=== PATIENT | female | born 1940 | race Caucasian/White ===

== ENCOUNTER 2020-12-21 15:08 | Outpatient (RCR) | payer MEDICARE, SELFPAY ==
[2017-08-15 14:16] VITALS: BMI 31.8
== END 2020-12-21 23:59 ==
LOC: IMMUN 15:08
PROVIDERS: PCP Family Medicine; Visit Provider Family Medicine
DX: Z23 Encounter for immunization (principal)
CPT/HCPCS: 0011A; 0012A; 91301

== ENCOUNTER → 2025-06-13 | Outpatient (CLI) | payer MEDICARE, SELFPAY ==
--- NOTE | 2025-06-13 15:25 | RAD_ITS ---
PROCEDURE: CERV SPINE 2 OR 3 VIEWS 06/13/2025 REASON FOR EXAM: RADICULOPATHY, CERVICAL REGION TECHNIQUE: CERV SPINE 2 OR 3 VIEWS COMPARISON: None. FINDINGS: No evidence of acute fracture or dislocation. Moderate degenerative changes of the visualized spine. Grade 1 anterolisthesis of C7 on T1. RAD/Cerv Spine 2 or 3 Views IMPRESSION: Spondylosis. Spondylolisthesis. Reading Location: [place] [id number]
--- OUTSIDE RECORDS SUMMARY | 2025-06-13 22:59 | XMS RPT_ITS | CCD ---
Author Organization [facility] Care Team Providers Care Banana Loader Name Role Phone CHANI GARRETT, ERIK Posada Primary Care Physician LUIS SHETTY DO Primary Care Physician Unavailable Primary Care Provider Unavailabl e SENA DO, LUIS E Primary Care Unavailable JANI GARRETT, NEMESIO Mabry Attending Unavail able ELAINE ANDERSON, DR MAYRA Posada Attending Unavailable SHETTY DO, LUIS E Primary Care Unavailable SHETTY DO, LUIS E Attending Unavailable SHETTY DO, LUIS E Primary Care Unavailable SHETTY DO, LUIS E Attending Unavailable SHETTY DO, LUIS E Primary Care Unavailable SHETTY DO, LUIS E Attending Unavailable SHETTY DO, LUIS E Primary Care Unavailable SHETTY DO, LUIS E Attending Unavailable SHETTY DO, LUIS E Primary Care Unavailable SHETTY DO, LUIS E Attending Unavailable SHETTY DO, LUIS E Primary Care Unavailable SHETTY, LUIS Primary Care Unavailable SHETTY, LUIS Primary Care Unavailable SHETTY, LUIS Primary Care Unavailable Shetty DO, Luis Primary Care Provider [phone] EDMUNDO HICKMAN Attending Unavailable SHETTY, LUIS E Primary Care Unavailable SHETTY DO, LUIS E Primary Care Unavailable SHETTY DO, LUIS E Attending Unavailable SHETTY DO, LUIS E Attending Unavailable SHETTY DO, LUIS E Primary Care Unavailable SHETTY DO, LUIS E Attending Unavailable SHETTY DO, LUIS E Primary Care Unavailable SHETTY DO, LUIS E Primary Care Unavailable SHETTY DO, LUIS E Attending Unavailable SHETTY DO, LUIS E Attending Unavailable SHETTY DO, LUIS E Primary Care Unavailable SHETTY DO, LUIS E Primary Care Unavailable SHETTY DO, LUIS E Attending Unavailable Allergies Allergy Classification Reported Allergen(s) Allergy Type Date of Onset Reaction(s) Facility (12 sources) Acetaminophen / HYDROcodone; Translations: [acetaminophen-h ydrocodone] Drug Allergy [facility] (12 sources) Clindamycin; Translations: [clindamycin] Drug Allergy [facility] (12 sources) Penicillin; Translations: [penicillins] Drug Allergy [facility] (11 sources) Azithromycin; Translations: [azithromycin] Drug Allergy Constipation (disorder) [facility] (5 sources) Turmeric extract; Translations: [turmeric] Drug Allergy Lightheadedness (finding) [facility] (1 source) ALLERGIES NOT ON FILE; Translations: [ALLERGIES NOT ON FILE] Propensity to adverse reactions (disorder) [facility] Repository (1 source) denosumab; Translations: [denosumab] Drug Allergy Joint pain (finding) [facility] Medications Current Medications Medication Drug Class(es) Dates Sig (Normalized) Sig (Original) Cholecalciferol (11 sources) Vitamin D Start: 08-19-2022 take 1 capsule by mouth once daily Vitamin D (3) 45 units oral capsule qDay, 0 Refill(s) Start Date: 08/19/22 Status: Ordered Repeat number: 1 Start: 08-19-2022 Vitamin D (3) 45 units oral capsule qDay, 0 Refill(s) Start Date: 08/19/22 Status: Ordered clobetasol propionate 0.5 mg/ml medicated shampoo (3 sources) Corticosteroid Start: 07-10-2022 clobetasol 0.0 5% topical shampoo Apply 1 gladys, Topical, qDay, # 118 mL, 0 Refill(s), Pharmacy: [facility] #[id number], Shampoo, 167, cm, 07/10/22 11:22:00 EDT, Height, 77.6 Start Date: 07/10/22 Status: Ordered Docusate (7 sources) Start: 09-15-2023 take 1 mg by mouth twice daily Dulcolax Stool Softener mg =, Oral, BID, 0 Refill(s) Start Date: 09/15/23 Status: Ordered Repeat number: 1 Start: 09-15-2023 take 1 mg by mouth twice daily Dulcolax Stool Softener mg =, Oral, BID, 0 Refill(s) Start Date: 09/15/23 Status: Ordered doxycycline hyclate 100 mg oral capsule (1 source) Tetracycline-class Drug Start: 07-13-2024 End: 07-20-2024 doxycycline hyclate 100 mg oral capsule Dose : 100 mg = 1 cap(s), Oral, BID, X 7 day(s), # 14 cap(s), 0 Refill(s), 07/20/24 3:19:00 PM EDT, 73.2 Start Date: 07/13/24 Stop Date: 07/20/24 Status: Ordered glucosamine sulfate 500 mg oral capsule (8 sources) Start: 04-23-2022 glucosamine 50 0 mg oral capsule Dose : 500 mg = 1 cap(s), Oral, Daily, 0 Refill(s) Start Date: 04/23/22 Status: Ordered levothyroxine sodium 0.05 mg oral tablet (13 sources) l-Thyroxine Start: 01-25-2025 levothyroxine 50 mcg (0.05 mg) oral tablet See Instructions, TAKE 1 TAB BY MOUTH EVERYDAY, EXCEPT 2 ON FRIDAY, # 102 tab(s), 1 Refill(s), [facility]: [facility] [place], 155, cm, 01/25/25 14:30:00 EST, Height, kg, 01/25/25 14:30:00 EST, Dosing Weight Start Date: 01/25/25 Status: Ordered Quantity: 102.0 Unit: tab(s) Repeat number: 2 Start: 06-28-2024 levothyroxine 50 mcg (0.05 mg) oral tablet See Instructions, TAKE 1 TAB BY MOUTH EVERYDAY, EXCEPT 2 ON FRIDAY, # 102 tab(s), 0 Refill(s), Pharmacy: [facility] [place], 167, cm, 06/28/24 10:26:00 EDT, Height, kg, 06/28/24 10:20:00 EDT, Dosing Weight Start Date: 06/28/24 Status: Ordered Start: 06-11-2024 levothyroxine 50 mcg (0.05 mg) oral tablet See Instructions, TAKE 1 TAB BY MOUTH EVERYDAY, EXCEPT 2 ON FRIDAY, # 102 tab(s), 0 Refill(s), Pharmacy: [facility] [place], 167, cm, 03/29/24 13:53:00 EDT, Height, kg, 03/29/24 13:53:00 EDT, Dosing Weight Start Date: 06/11/24 Status: Ordered Start: 10-02-2023 levothyroxine 50 mcg (0.05 mg) oral tablet See Instructions, TAKE 1 TAB BY MOUTH EVERYDAY, EXCEPT 2 ON FRIDAY, # 102 tab(s), 1 Refill(s), Pharmacy: [facility] [place], 167, cm, 09/15/23 12:25:00 EDT, Height, kg, 09/15/23 12:25:00 EDT, Dosing Weight Start Date: 10/02/23 Status: Ordered Start: 04-21-2023 levothyroxine 50 mcg (0.05 mg) oral tablet See Instructions, TAKE 1 TAB BY MOUTH EVERYDAY, EXCEPT 2 ON FRIDAY, # 102 tab(s), 1 Refill(s), Pharmacy: [facility] [place], 167, cm, 02/18/23 10:59:00 EDT, Height, kg, 02/18/23 10:59:00 EDT, Dosing Weight Start Date: 04/21/23 Status: Ordered Start: 11-11-2022 levothyroxine 50 mcg (0.05 mg) oral tablet See Instructions, TAKE 1 TAB BY MOUTH EVERYDAY, EXCEPT 2 ON FRIDAY, # 102 tab(s), 1 Refill(s), [facility]acy: [facility] [place], 167, cm, 08/21/22 15:00:00 EDT, Height, kg, 08/21/22 15:00:00 EDT, Dosing Weight Start Date: 11/11/22 Status: Ordered Start: 08-21-2020 levothyroxine 50 mcg (0.05 mg) oral tablet See Instructions, TAKE 1 TAB BY MOUTH EVERYDAY, EXCEPT 2 ON FRIDAY, # 34 tab(s), 11 Refill(s), Pharmacy: [facility], 157.6, cm, 08/21/20 10:24:00 EDT, Height, kg, 08/21/20 10:24:00 EDT, Dosing Weight Start Date: 5/25/21 Status: Ordered magnesium oxide 250 mg oral tablet (2 sources) Start: 09-15-2023 Magnesium 250 mg tablet Dose : 250 mg = 1 tab(s), Oral, qDay, 0 Refill(s) Start Date: 09/15/23 Status: Ordered memantine hydrochloride 5 mg oral tablet (3 sources) U-ieyqop-J-aspart ate Receptor Antagonist Start: 01-25-2025 take 1 tablet by mouth twice daily memantine 5 mg oral tablet TAKE 1 TABLET BY MOUTH TWICE A DAY FOR 14 DAYS Start Date: 01/25/25 Status: Ordered Repeat number: 1 Multivitamin preparation (11 sources) Start: 04-23-2022 take 1 tablet by mouth once daily Multivitamin Dose = 1 tab(s), Oral, Daily, 0 Refill(s) Start Date: 04/23/22 Status: Ordered Repeat number: 1 Start: 04-23-2022 take 1 tablet by gene th once daily Multivitamin Dose = 1 tab(s), Oral, Daily, 0 Refill(s) Start Date: 04/23/22 Status: Ordered Probiotic (13 sources) Start: 08-19-2022 Probiotic 0 Re fill(s) Start Date: 08/19/22 Status: Ordered Start: 04-23-2022 Probiotic 0 Re fill(s) Start Date: 04/23/22 Status: Ordered Repeat number: 1 Start: 04-23-2022 Probiotic 0 Re fill(s) Start Date: 04/23/22 Status: Ordered Psyllium (1 source) Start: 03-29-2024 psyllium Oral, 0 Refill(s) Start Date: 03/29/24 Status: Ordered traZODone hydrochloride 50 mg oral tablet (2 sources) Serotonin Reuptake Inhibitor Start: 08-22-2023 traZODone 50 mg oral tablet Dose : 50 mg = 1 tab(s), Oral, qHS, # 30 tab(s), 0 Refill(s), Pharmacy: [facility] [place], Sleep difficulties, 167.3, cm, 08/22/23 13:32:00 EDT, Height, kg, 08/22/23 13:32:00 EDT, Dosing Weight Start Date: 08/22/23 Status: Ordered Vitamin B12 50 mcg oral tablet (11 sources) Start: 04-23-2022 Vitamin B12 50 mcg oral tablet Dose : 50 mcg = 1 tab(s), Oral, qDay, # 30 tab(s), 0 Refill(s) Start Date: 04/23/22 Status: Ordered Quantity: 30.0 Unit: tab(s) Repeat number: 1 Start: 04-23-2022 Vitamin B12 50 mcg oral tablet Dose : 50 mcg = 1 tab(s), Oral, qDay, # 30 tab(s), 0 Refill(s) Start Date: 04/23/22 Status: Ordered Vitamin C 1000 mg oral table t (11 sources) Start: 08-19-2022 Vitamin C 1000 mg oral tablet Dose : 1,000 mg = 1 tab(s), Oral, qDay, # 90 tab(s), 0 Refill(s) Start Date: 08/19/22 Status: Ordered Quantity: 90.0 Unit: tab(s) Repeat number: 1 Start: 08-19-2022 Vitamin C 1000 mg oral tablet Dose : 1,000 mg = 1 tab(s), Oral, qDay, # 90 tab(s), 0 Refill(s) Start Date: 08/19/22 Status: Ordered Completed/Discontinued Medications Medication Drug Class(es) Dates Sig (Normalized) Sig (Original) alendronic acid 70 mg oral tablet (2 sources) Bisphosphonate Start: 04-05-2025 take 6-8 [oz_av] by mouth once daily alendronate 70 mg oral tablet Dose : 70 mg = 1 tab(s), Oral, qWeek, with 6-8 oz plain water, at least 30 minutes before first food, beverage, or medication of the day. Upright for 2 hours after, # 4 tab(s), 1 Refill(s), Pharmacy: [facility] [place], Osteopenia, dexa 03/2024 with FRAX hip 2.9%, 155.5, cm, 04/05/25 10:03:00 EDT, Height, kg, 04/05/25 10:03:00 EDT, Dosing Weight Start Date: 04/05/25 Status: Ordered Quantity: 4.0 Unit: tab(s) Repeat number: 2 Indications: Other specified disorders of bone density and structure, unspecified site; 1 ml denosumab 60 mg/ml prefilled syringe (10 sources) RANK Ligand Inhibitor Start: 02-18-2025 inject 1 mL by subcutaneous injection in the evening Prolia 60 mg/mL subcutaneous solution Dose : 60 mg = 1 mL, Subcutaneous, q6mo, Signed 02/18/25 at 4:50 PM M81.0, # 1 mL, 1 Refill(s), Osteoporosis Start Date: 02/18/25 Status: Ordered Quantity: 1.0 Unit: mL Repeat number: 2 Indications: Age-related osteoporosis without current pathological fracture; Start: 09-08-2024 inject 1 mL by subcu taneous injection in the evening Prolia 60 mg/mL subcutaneous solution Dose : 60 mg = 1 mL, Subcutaneous, q6mo, M81.0 Signed 09/08/24 at 5:08 PM, # 1 mL, 1 Refill(s), Osteoporosis Start Date: 09/08/24 Status: Ordered Start: 02-24-2024 Prolia 60 mg/m L subcutaneous solution Dose : 60 mg = 1 mL, Subcutaneous, q6mo, # 1 mL, 1 Refill(s), Osteoporosis Start Date: 02/24/24 Status: Ordered Start: 08-29-2023 Prolia 60 mg/m L subcutaneous solution Dose : 60 mg = 1 mL, Subcutaneous, q6mo, # 1 mL, 1 Refill(s), Osteoporosis Start Date: 08/29/23 Status: Ordered Start: 08-19-2022 Prolia 60 mg/m L subcutaneous solution Dose : 60 mg = 1 mL, Subcutaneous, q6mo, # 1 mL, 1 Refill(s), Osteoporosis Start Date: 11/01/22 Status: Ordered Problems Problem Classification Problem Date Documented Da te Episodic/Chronic Chronic obstructive pulmonary disease and bronchiectasis (1 source) Bronchitis; Translations: [Bronchitis, not specified as acute or chronic] Onset: 07-13-2024 Episodic Complications of surgical procedures or medical care (3 sources) Complication of medical care 01-25-2025 Episodic Conditions associated with dizziness or vertigo (9 sources) Intermittent vertigo 09-15-2023 Episodic Delirium, dementia, and amnestic and other cognitive disorders (3 sources) Alzheimer's disease 01-25-2025 Chronic Diabetes mellitus without complication (8 sources) Prediabetes; Translations: [Prediabetes] 02-19-2023 Episodic Disorders of lipid metabolism (12 sources) Pure hyperglyceridemia; Translations: [Pure hyperglyceridemia] Onset: 04-08-2025 02-19-2023 Chronic Osteoporosis (8 sources) Osteoporosis; Translations: [Age-related osteoporosis without current pathological fracture] Onset: 03-24-2025 08-19-2022 Chronic Other bone disease and musculoskeletal deformities (7 sources) Osteopenia 02-18-2023 Episodic Other bone disease and musculoskeletal deformities (2 sources) Other specified disorders of bone density and structure, unspecified site; Translations: [Other specified disorders of bone density and structure, unspecified site] Onset: 04-08-2025 Episodic Other connective tissue disease (2 sources) Pain in right arm; Translations: [Pain in right arm] Onset: 04-08-2025 Episodic Other ear and sense organ disorders (12 sources) Bilateral hearing loss 12-14-2021 Chronic Other ear and sense organ disorders (1 source) Sensorineural hearing loss, bilateral; Translations: [Sensorineural hearing loss (SNHL) of both ears] Onset: 06-11-2024 Chronic Other ear and sense organ disorders (5 sources) Auditory processing disorder 07-23-2024 Chronic Other ear and sense organ disorders (3 sources) Sensorineural hearing loss, bilateral; Translations: [Sensorineural hearing loss, bilateral] 06-11-2024 Chronic Other ear and sense organ disorders (11 sources) Does use hearing aid 07-10-2022 Episodic Other gastrointestinal disorders (11 sources) Constipation 08-19-2022 Episodic Other inflammatory condition of skin (11 sources) Seborrheic dermatitis of scalp 07-10-2022 Episodic Other nutritional; endocrine; and metabolic disorders (3 sources) H/O: endocrine disorder 01-25-2025 Episodic Other nutritional; endocrine; and metabolic disorders (3 sources) Overweight in adulthood with body mass index of 25 or more but less than 30 09-27-2024 Episodic Other upper respiratory disease (11 sources) Nasal congestion 07-10-2022 Episodic Other upper respiratory infections (11 sources) Chronic sinusitis 07-10-2022 Chronic Spondylosis; intervertebral disc disorders; other back problems (6 sources) Lumbago with sciatica 06-28-2024 Episodic Thyroid disorders (13 sources) Hypothyroidism; Translations: [Congenital hypothyroidism without goiter] 08-23-2016 Chronic Unclassified (2 sources) Drug therapy finding 04-05-2025 Results Test Name Value Interpretation Reference Range Facility XR HUMERUS MINIMUM 2 VIEWS R [facility] 05-02-2025 XR HUMERUS MINIMUM 2 VIEWS RIGHT ORIGINAL EXAMINATION: TWO XRAY VIEWS OF THE RIGHT HUMERUS05/02/2025 11:29 am COMPARISON: None HISTORY: ORDERING SYSTEM PROVIDED HISTORY: Reason for Exam: Arm pain, greater than 5 weeks from Prolia evaluate bone health, assure no fracture FINDINGS: A reverse right shoulder arthroplasty noted. There is concern for a nondisplaced fracture around the humeral stem of the prosthesis. The elbow is not evaluated in detail. IMPRESSION: Suspected nondisplaced periprosthetic fracture around the humeral stem of the prosthesis Interpreted by: Rei Nelson MD Preliminary Report By: Rei Nelson MD Electronically signed By Rei Nelson MD Dictated Date: 05/02/2025 3:35:36 PM Prelim Date: 05/02/2025 3:37:06 PM Sign Date: 05/02/2025 3:37:06 PM Ordering Provider: [facility] XR SHOULDER MINIMUM 2 VIEWS RIGHTon 05-02-2025 XR SHOULDER MINIMUM 2 VIEWS RIGHT ORIGINAL EXAMINATION: 4 XRAY VIEWS OF THE RIGHT SHOULDER05/02/2025 11:29 am COMPARISON: 08/14/2020 HISTORY: ORDERING SYSTEM PROVIDED HISTORY: Reason for Exam: Arm pain, greater than 5 weeks from Prolia evaluate bone health, assure no fracture FINDINGS: Reverse right shoulder arthroplasty noted. Cortical irregularity seen in the proximal humeral shaft, around the humeral stem of the prosthesis. Mild acromioclavicular joint arthrosis identified. Visualized right ribs are intact. Visualized right lung is clear. IMPRESSION: Right shoulder arthroplasty. There is a suspected periprosthetic fracture around the humeral stem of the prosthesis Interpreted by: Rei Nelson MD Preliminary Report By: Rei Nelson MD Electronically signed By Rei Nelson MD Dictated Date: 05/02/2025 3:37:10 PM Prelim Date: 05/02/2025 3:38:22 PM Sign Date: 05/02/2025 3:38:22 PM Ordering Provider: [facility] APOBon 04-11-2025 Apolipoprotein B [Mass/Vol] 75 mg/dL Normal <90 [facility] Comment on above: Result Comment: Nilam rable < 90 Borderline High 90 - 99 High 100 - 130 Very High >130 ASCVD RISK THERAPEUTIC TARGET CATEGORY APO B (mg/dL) Very High Risk <80 (if extreme risk <70) High Risk <90 Moderate Risk <90 Performed At: [facility] [id number] Pete Vale MD Ph:[phone] Performed By: #### L IPID, GFR, ANEU, MG, CBC, CAION, PHOS, VIDH, [id number], ADIFF, BMP ####[address] [place], [place] [address] .Auto Diffon 04-08-2025 Basophil, Absolute 0.0 10 3/mcL Normal 0.0-0.3 [facility] Comment on above: Performed By: #### L IPID, GFR, ANEU, MG, CBC, CAION, PHOS, VIDH, [id number], ADIFF, BMP ####[address] [place], [place] [address] Basophils/100 WBC (Bld) 0.4 % Normal 0.0-2.5 [facility] Comment on above: Performed By: #### L IPID, GFR, ANEU, MG, CBC, CAION, PHOS, VIDH, [id number], ADIFF, BMP ####[address] [place], [place] [address] Eosinophil, Absolute 0.1 10 3/mcL Normal 0.0-0.7 [facility] Comment on above: Performed By: #### L IPID, GFR, ANEU, MG, CBC, CAION, PHOS, VIDH, [id number], ADIFF, BMP ####[facility] [place], [place] [address] Eosinophils/100 WBC (Bld) 2.1 % Normal 0.0-6.0 [facility] Comment on above: Performed By: #### L IPID, GFR, ANEU, MG, CBC, CAION, PHOS, VIDH, [id number], ADIFF, BMP ####[facility] [place], [place] [address] Lymphocyte, Absolute 1.9 10 3/mcL Normal 0.9-4.3 [facility] Comment on above: Performed By: #### L IPID, GFR, ANEU, MG, CBC, CAION, PHOS, VIDH, [id number], ADIFF, BMP ####[facility] [place], [place] [address] Lymphocytes/100 WBC (Bld) 31.4 % Normal 20.0-40.0 [facility] Comment on above: Performed By: #### L IPID, GFR, ANEU, MG, CBC, CAION, PHOS, VIDH, [id number], ADIFF, BMP ####[facility] [place], [place] [address] Monocyte, Absolute 0.5 10 3/mcL Normal 0.1-1.4 [facility] Comment on above: Performed By: #### L IPID, GFR, ANEU, MG, CBC, CAION, PHOS, VIDH, [id number], ADIFF, BMP ####[address] [place], [place] [address] Monocytes/100 WBC (Bld) 7.5 % Normal 2.0-13.0 [facility] Comment on above: Performed By: #### L IPID, GFR, ANEU, MG, CBC, CAION, PHOS, VIDH, [id number], ADIFF, BMP ####[facility] [place], [place] [address] Neutrophils/100 WBC (Bld) 58.6 % Normal 50.0-75.0 [facility] Comment on above: Performed By: #### L IPID, GFR, ANEU, MG, CBC, CAION, PHOS, VIDH, [id number], ADIFF, BMP ####[facility] [place], [place] [address] .GFRon 04-08-2025 Estimated Glomerular Filtration Rate 77 ml/min/1.73sqm Normal [facility] Comment on above: Result Comment: Stages of Chronic Kidney Disease (CKD) Stage Description eGFR(ml/min/1.73 sq.m.) CKD 1 Normal kidney function or >=90 normal kindney function with possible kidney damage (ex. Proteinuria) CKD 2 Kidney damage with mild loss 60-89 of kidney function CKD 3a Mild to moderate loss of kidney 45-59 function CKD 3b Moderate to severe loss of 30-44 of kindey function CKD 4 Severe loss of kidney function 15-29 CKD 5 Kidney failure <15 Note: (go live 2025) the eGFR calculation was updated to the 2020 CKD-EPI creatinine equation without a race factor to calculate the eGFR results. Performed By: #### L IPID, GFR, ANEU, MG, CBC, CAION, PHOS, VIDH, [id number], ADIFF, BMP ####[address] [place], [place] [address] .NEUABSon 04-08-2025 Neutrophil, Absolute 3.6 10 3/mcL Normal 2.3-8.1 [facility] Comment on above: Performed By: #### L IPID, GFR, ANEU, MG, CBC, CAION, PHOS, VIDH, [id number], ADIFF, BMP ####[address] [place], [place] [address] BMPon 04-08-2025 BUN/Creatinine Ratio 23 ratio Normal 7-27 [facility] Comment on above: Performed By: #### L IPID, GFR, ANEU, MG, CBC, CAION, PHOS, VIDH, [id number], ADIFF, BMP ####[address] [place], [place] [address] Calcium [Mass/Vol] 9.1 mg/dL Normal 8.4-10.2 [facility] Comment on above: Performed By: #### L IPID, GFR, ANEU, MG, CBC, CAION, PHOS, VIDH, [id number], ADIFF, BMP ####[facility] [place], [place] [address] Chloride [Moles/Vol] 107 mmol/L Normal 98-107 [facility] Comment on above: Performed By: #### L IPID, GFR, ANEU, MG, CBC, CAION, PHOS, VIDH, [id number], ADIFF, BMP ####[address] [place], [place] [address] CO2 [Moles/Vol] 31 mmol/L Normal 23-31 [facility] Comment on above: Performed By: #### L IPID, GFR, ANEU, MG, CBC, CAION, PHOS, VIDH, [id number], ADIFF, BMP ####[address] [address] Creatinine [Mass/Vol] 0.75 mg/dL Normal 0.51-0.95 [facility] Comment on above: Performed By: #### L IPID, GFR, ANEU, MG, CBC, CAION, PHOS, VIDH, [id number], ADIFF, BMP ####[address] [address] Electrolyte Balance 5.0 mEq/L Normal 4.0-15.0 [facility] Comment on above: Performed By: #### L IPID, GFR, ANEU, MG, CBC, CAION, PHOS, VIDH, [id number], ADIFF, BMP ####[place] [address] Glucose [Mass/Vol] 102 mg/dL Normal 83-110 [facility] Comment on above: Performed By: #### L IPID, GFR, ANEU, MG, CBC, CAION, PHOS, VIDH, [id number], ADIFF, BMP ####[address] [address] Potassium [Moles/Vol] 4.4 mmol/L Normal 3.5-5.1 [facility] Comment on above: Performed By: #### L IPID, GFR, ANEU, MG, CBC, CAION, PHOS, VIDH, [id number], ADIFF, BMP ####[id number] [place], [place] [address] Sodium [Moles/Vol] 143 mmol/L Normal 136-145 [facility] Comment on above: Performed By: #### L IPID, GFR, ANEU, MG, CBC, CAION, PHOS, VIDH, [id number], ADIFF, BMP ####[address] [address] Urea nitrogen [Mass/Vol] 17 mg/dL Normal 7-18 [facility] Comment on above: Performed By: #### L IPID, GFR, ANEU, MG, CBC, CAION, PHOS, VIDH, [id number], ADIFF, BMP ####[address] [address] CAIONon 04-08-2025 Calcium Ionized 1.21 mmol/L Normal 1.12-1.32 [facility] Comment on above: Performed By: #### L IPID, GFR, ANEU, MG, CBC, CAION, PHOS, VIDH, [id number], ADIFF, BMP #### [place] [address] CBCon 04-08-2025 Erythrocyte distribution width (RBC) [Ratio] 12.6 % Normal 11.5-15.5 [facility] Comment on above: Performed By: #### L IPID, GFR, ANEU, MG, CBC, CAION, PHOS, VIDH, [id number], ADIFF, BMP #### [address] [address] Hematocrit (Bld) [Volume fraction] 41.2 % Normal 34.0-46.0 [facility] Comment on above: Performed By: #### L IPID, GFR, ANEU, MG, CBC, CAION, PHOS, VIDH, [id number], ADIFF, BMP #### [address] [address] Hgb 13.9 G/dL Normal 12.0-16.0 [facility] Comment on above: Performed By: #### L IPID, GFR, ANEU, MG, CBC, CAION, PHOS, VIDH, [id number], ADIFF, BMP #### [address] [address] MCH (RBC) [Entitic mass] 33.2 pg High 27.0-33.0 [facility] Comment on above: Performed By: #### L IPID, GFR, ANEU, MG, CBC, CAION, PHOS, VIDH, [id number], ADIFF, BMP #### [address] [address] MCHC 33.6 G/dL Normal 32.0-36.0 [facility] Comment on above: Performed By: #### L IPID, GFR, ANEU, MG, CBC, CAION, PHOS, VIDH, [id number], ADIFF, BMP #### [address] [address] MCV (RBC) [Entitic vol] 98.7 fL Normal 80.0-99.0 [facility] Comment on above: Performed By: #### L IPID, GFR, ANEU, MG, CBC, CAION, PHOS, VIDH, [id number], ADIFF, BMP #### [address] [address] Platelet 231 10 3/mcL Normal 150-450 [facility] Comment on above: Performed By: #### L IPID, GFR, ANEU, MG, CBC, CAION, PHOS, VIDH, [id number], ADIFF, BMP #### [address] [address] Platelet mean volume (Bld) [Entitic vol] 7.8 fL Normal 6.6-10.5 [facility] Comment on above: Performed By: #### L IPID, GFR, ANEU, MG, CBC, CAION, PHOS, VIDH, [id number], ADIFF, BMP #### [address] [address] RBC 4.18 10 6/mcL Normal 4.10-5.30 [facility] Comment on above: Performed By: #### L IPID, GFR, ANEU, MG, CBC, CAION, PHOS, VIDH, [id number], ADIFF, BMP #### [address] [address] WBC 6.1 10 3/mcL Normal 4.5-10.8 [facility] Comment on above: Performed By: #### L IPID, GFR, ANEU, MG, CBC, CAION, PHOS, VIDH, [id number], ADIFF, BMP #### [address] [place], [place] [address] LABORATORYOrdered By: SYSTEM SYSTEM on 04-08-2025 25-hydroxyvitamin D3 [Mass/Vol] 92.8 ng/mL Invalid Interpretation Code AO ADM SS Comment on above: Interpretive Data: I nterpretive Values Based on Total 25(OH) Vitamin D: Deficient <20 ng/mL Insufficient 20 - <30 ng/mL Sufficient 30-100 ng/mL Basophils (Bld) [#/Vol] 0.0 103/mcL Normal 0.0 - 0.3 10^3/mcL AO Workflow SS Basophils/100 WBC (Bld) 0.4 % Normal 0.0 - 2.5 % AO Workflow SS Calcium [Mass/Vol] 9.1 mg/dL Normal 8.4 - 10. 2 mg/dL AO ADM SS Chloride [Moles/Vol] 107 mmol/L Normal 98 - 10 7 mmol/L AO ADM SS CO2 [Moles/Vol] 31 mmol/L Normal 23 - 31 mmol/L AO ADM SS Creatinine [Mass/Vol] 0.75 mg/dL Normal 0.51 - 0.95 mg/dL AO ADM SS Electrolyte Balance 5.0 mEq/L Normal 4.0 - 15 .0 mEq/L AO ADM SS Eosinophil, Absolute 0.1 103/mcL Normal 0.0 - 0 .7 10^3/mcL AO Workflow SS Eosinophils/100 WBC (Bld) 2.1 % Normal 0.0 - 6.0 % AO Workflow SS Erythrocyte distribution width (RBC) [Ratio] 12.6 % Normal 11.5 - 15.5 % AO Workflow SS Estimated Glomerular Filtration Rate 77 ml/min/1.73sqm Invalid Interpretation Code AO Chemistry S Comment on above: Interpretive Data: Stages of Chronic Kidney Disease (CKD) Stage Description eGFR(ml/min/1.73 sq.m.) CKD 1 Normal kidney function or >=90 normal kindney function with possible kidney damage (ex. Proteinuria) CKD 2 Kidney damage with mild loss 60-89 of kidney function CKD 3a Mild to moderate loss of kidney 45-59 function CKD 3b Moderate to severe loss of 30-44 of kindey function CKD 4 Severe loss of kidney function 15-29 CKD 5 Kidney failure <15 Note: (go live 2025) the eGFR calculation was updated to the 2020 CKD-EPI creatinine equation without a race factor to calculate the eGFR results. Glucose [Mass/Vol] 102 mg/dL Normal 83 - 110 mg/dL AO ADM SS Hematocrit (Bld) [Volume fraction] 41.2 % Normal 34.0 - 46.0 % AO Workflow SS Hemoglobin (Bld) [Mass/Vol] 13.9 G/dL Normal 12.0 - 16.0 G/dL AO Workflow SS Lymphocytes (Bld) [#/Vol] 1.9 103/mcL Normal 0.9 - 4.3 10^3/mcL AO Workflow SS Lymphocytes/100 WBC (Bld) 31.4 % Normal 20.0 - 40.0 % AO Workflow SS Magnesium [Mass/Vol] 2.0 mg/dL Normal 1.8 - 2 .4 mg/dL AO ADM SS MCH (RBC) [Entitic mass] 33.2 pg High 27.0 - 33.0 pg AO Workflow SS MCHC 33.6 G/dL Normal 32.0 - 36.0 G/dL AO Workflow SS MCV (RBC) [Entitic vol] 98.7 fL Normal 80.0 - 99.0 fL AO Workflow SS Monocytes (Bld) [#/Vol] 0.5 103/mcL Normal 0.1 - 1.4 10^3/mcL AO Workflow SS Monocytes/100 WBC (Bld) 7.5 % Normal 2.0 - 13.0 % AO Workflow SS Neutrophils (Bld) [#/Vol] 3.6 103/mcL Normal 2.3 - 8.1 10^3/mcL AO Workflow SS Neutrophils/100 WBC (Bld) 58.6 % Normal 50.0 - 75.0 % AO Workflow SS Phosphate [Mass/Vol] 3.2 mg/dL Normal 2.3 - 4 .1 mg/dL AO ADM SS Platelet mean volume (Bld) [Entitic vol] 7.8 fL Normal 6.6 - 10.5 fL AO Workflow SS Platelets (Bld) [#/Vol] 231 103/mcL Normal 150 - 450 10^3/mcL AO Workflow SS Potassium [Moles/Vol] 4.4 mmol/L Normal 3.5 - 5.1 mmol/L AO ADM SS RBC (Bld) [#/Vol] 4.18 106/mcL Normal 4.10 - 5.3 0 10^6/mcL AO Workflow SS Sodium [Moles/Vol] 143 mmol/L Normal 136 - 145 mmol/L AO ADM SS Urea nitrogen [Mass/Vol] 17 mg/dL Normal 7 - 18 mg/dL AO ADM SS Urea nitrogen/Creatinine [Mass ratio] 23 ratio Normal 7 - 27 ratio AO ADM SS WBC (Bld) [#/Vol] 6.1 103/mcL Normal 4.5 - 10.8 10^3/mcL AO Workflow SS LABORATORYOrdered By: [employer] P CONTRIBUTOR_SYSTEM on 04-08-2025 Apolipoprotein B [Mass/Vol] 75 mg/dL Invalid Interpretation Code <90 AO Sendouts SS Comment on above: Result Comment: Nilam rabmariluz < 90 Borderline High 90 - 99 High 100 - 130 Very High >130 ASCVD RISK THERAPEUTIC TARGET CATEGORY APO B (mg/dL) Very High Risk <80 (if extreme risk <70) High Risk <90 Moderate Risk <90 Performed At: [facility] [address] [id number] Pete Vale MD Ph:[phone] LABORATORYOrdered By: Dee Dewitt on 04-08-2025 Calcium Ionized 1.21 mmol/L Normal 1.12 - 1.32 mmol/L AO Rapid Comm SS LABORATORYOrdered By: Hannah Can on 04-08-2025 Cholesterol [Mass/Vol] 164 mg/dL Normal 0 - 200 mg/dL AO ADM SS Comment on above: Interpretive Data: C holesterol Reference Interval: Less than 200 Desirable 200-239 Borderline high risk 240 and above High risk Cholesterol in HDL [Mass/Vol] 60 mg/dL Normal 40 - 60 mg/dL AO ADM SS Cholesterol in LDL [Mass/Vol] 85 mg/dL Normal 0 - 130 mg/dL AO ADM SS Triglyceride [Mass/Vol] 96 mg/dL Normal 0 - 150 mg/dL AO ADM SS Comment on above: Interpretive Data: T riglyceride Reference Interval: Less than 150 Normal 150-199 Borderline high risk 200-499 High risk 500 or higher Very high risk LIPIDon 04-08-2025 Cholesterol [Mass/Vol] 164 mg/dL Normal 0-200 [facility] Comment on above: Result Comment: Chol esterol Reference Interval: Less than 200 Desirable 200-239 Borderline high risk 240 and above High risk Performed By: #### L IPID, GFR, ANEU, MG, CBC, CAION, PHOS, VIDH, [id number], ADIFF, BMP ####[facility] [place], [place] [address] Cholesterol in HDL [Mass/Vol] 60 mg/dL Normal 40-60 [facility] Comment on above: Performed By: #### L IPID, GFR, ANEU, MG, CBC, CAION, PHOS, VIDH, [id number], ADIFF, BMP ####[place] [address] [place], [place] [address] Cholesterol in LDL [Mass/Vol] 85 mg/dL Normal 0-130 [facility] Comment on above: Performed By: #### L IPID, GFR, ANEU, MG, CBC, CAION, PHOS, VIDH, [id number], ADIFF, BMP ####[place] [address] [place], [place] [address] Triglyceride [Mass/Vol] 96 mg/dL Normal 0-150 [facility] Comment on above: Result Comment: Trig lyceride Reference Interval: Less than 150 Normal 150-199 Borderline high risk 200-499 High risk 500 or higher Very high risk Performed By: #### L IPID, GFR, ANEU, MG, CBC, CAION, PHOS, VIDH, [id number], ADIFF, BMP ####[facility] [place], [place] [address] MGon 04-08-2025 Magnesium [Mass/Vol] 2.0 mg/dL Normal 1.8-2.4 [facility] Comment on above: Performed By: #### L IPID, GFR, ANEU, MG, CBC, CAION, PHOS, VIDH, [id number], ADIFF, BMP ####[facility] [place], [place] [address] PHOSon 04-08-2025 Phosphate [Mass/Vol] 3.2 mg/dL Normal 2.3-4.1 [facility] Comment on above: Performed By: #### L IPID, GFR, ANEU, MG, CBC, CAION, PHOS, VIDH, [id number], ADIFF, BMP ####[facility] [place], [place] [address] VIDHon 04-08-2025 Vit. D 25-Hydroxy 92.8 ng/mL Normal [facility] Comment on above: Result Comment: Inte rpretive Values Based on Total 25(OH) Vitamin D: Deficient <20 ng/mL Insufficient 20 - <30 ng/mL Sufficient 30-100 ng/mL Performed By: #### L IPID, GFR, ANEU, MG, CBC, CAION, PHOS, VIDH, [id number], ADIFF, BMP ####[place] [address] [place], [place] [address] .GFRon 09-14-2024 GFR 77 ml/min/1.73sqm Normal [facility] Comment on above: Result Comment: GFR Population mean for , Non- Americans Ages 20-29 = 116 mL/min/1.73 sq.m. Ages 30-39 = 107 mL/min/1.73 sq.m. Ages 40-49 = 99 mL/min/1.73 sq.m. Ages 50-59 = 93 mL/min/1.73 sq.m. Ages 60-69 = 85 mL/min/1.73 sq.m. Ages 70+ = 75 mL/min/1.73 sq.m. Chronic Kidney Disease: Less than 60 mL/min/1.73 square meters End Stage Renal Disease: Less than 15 mL/min/1.73 square meters Performed By: #### B MP, TSHR, A1C, PHOS, GFR #### [facility] [address] [place], [place] [address] #### B12 #### [address] [address] GFR Non- 63 ml/min/1.73sqm Normal [facility] Comment on above: Result Comment: GFR Population mean for , Non- Americans Ages 20-29 = 116 mL/min/1.73 sq.m. Ages 30-39 = 107 mL/min/1.73 sq.m. Ages 40-49 = 99 mL/min/1.73 sq.m. Ages 50-59 = 93 mL/min/1.73 sq.m. Ages 60-69 = 85 mL/min/1.73 sq.m. Ages 70+ = 75 mL/min/1.73 sq.m. Chronic Kidney Disease: Less than 60 mL/min/1.73 square meters End Stage Renal Disease: Less than 15 mL/min/1.73 square meters Performed By: #### B MP, TSHR, A1C, PHOS, GFR #### [address] [address] #### B12 #### [place] [address] A1C 09-14-2024 Glucose [Mass/Vol] 114 mg/dL Normal [facility] Comment on above: Result Comment: Anita mated Average Glucose calculated by equation ((28.7xA1C)-46.7) Estimated average glucose (eAG) is a calculated value from Hemoglobin A1C and is indirect sales representative of the average blood glucose level in the last 2-3 month period. Normal range: less than 114 mg/dL Performed By: #### B MP, TSHR, A1C, PHOS, GFR #### [address] [address] #### B12 #### [address] [address] HbA1c (Bld) [Mass fraction] 5.6 % Normal 4.3-6.4 [facility] Comment on above: Performed By: #### B MP, TSHR, A1C, PHOS, GFR #### [address] [address] #### B12 #### [place] [address] B12on 09-14-2024 Cobalamin (Vitamin B12) [Mass/Vol] 803 pg/mL Normal 211-911 [facility] Comment on above: Performed By: #### B MP, TSHR, A1C, PHOS, GFR #### [address] [address] #### B12 #### [address] [address] BMPon 09-14-2024 BUN/Creatinine Ratio 15 ratio Normal 7-27 [facility] Comment on above: Performed By: #### B MP, TSHR, A1C, PHOS, GFR #### [address] [address] #### B12 #### [address] [address] Calcium [Mass/Vol] 9.5 mg/dL Normal 8.4-10.2 [facility] Comment on above: Performed By: #### B MP, TSHR, A1C, PHOS, GFR #### [address] [address] #### B12 #### [address] [address] Chloride [Moles/Vol] 104 mmol/L Normal 98-107 [facility] Comment on above: Performed By: #### B MP, TSHR, A1C, PHOS, GFR #### [address] [address] #### B12 #### [address] [address] CO2 [Moles/Vol] 30 mmol/L Normal 23-31 [facility] Comment on above: Performed By: #### B MP, TSHR, A1C, PHOS, GFR #### [address] [address] #### B12 #### [address] [address] Creatinine [Mass/Vol] 0.85 mg/dL Normal 0.55-1.02 [facility] Comment on above: Result Comment: Test ing performed on Siemens Dimension EXL analyzer using a modified kinetic Milo technique. Performed By: #### B MP, TSHR, A1C, PHOS, GFR #### [address] [address] #### B12 #### [address] [address] Electrolyte Balance 4.0 mEq/L Normal 4.0-15.0 [facility] Comment on above: Performed By: #### B MP, TSHR, A1C, PHOS, GFR #### [address] [address] #### B12 #### [address] [address] Glucose [Mass/Vol] 117 mg/dL High 83-110 [facility] Comment on above: Performed By: #### B MP, TSHR, A1C, PHOS, GFR #### [place] [address] #### B12 #### [address] [address] Potassium [Moles/Vol] 4.7 mmol/L Normal 3.5-5.1 [facility] Comment on above: Performed By: #### B MP, TSHR, A1C, PHOS, GFR #### [address] [address] #### B12 #### [address] [address] Sodium [Moles/Vol] 138 mmol/L Normal 136-145 [facility] Comment on above: Performed By: #### B MP, TSHR, A1C, PHOS, GFR #### [place] [address] #### B12 #### [address] [address] Urea nitrogen [Mass/Vol] 13 mg/dL Normal 7-18 [facility] Comment on above: Performed By: #### B MP, TSHR, A1C, PHOS, GFR #### [address] [place] [address] #### B12 #### [place] [id number] [place] [address] LABORATORYOrdered By: SYSTEM SYSTEM on 09-14-2024 Calcium [Mass/Vol] 9.5 mg/dL Normal 8.4 - 10. 2 mg/dL AO ADM SS Chloride [Moles/Vol] 104 mmol/L Normal 98 - 10 7 mmol/L AO ADM SS CO2 [Moles/Vol] 30 mmol/L Normal 23 - 31 mmol/L AO ADM SS Cobalamin (Vitamin B12) [Mass/Vol] 803 pg/mL Normal 211 - 911 pg/mL AH ADM SS Creatinine [Mass/Vol] 0.85 mg/dL Normal 0.55 - 1.02 mg/dL AO ADM SS Comment on above: Interpretive Data: T esting performed on [employer] Dimension EXL analyzer using a modified kinetic Milo technique. Electrolyte Balance 4.0 mEq/L Normal 4.0 - 15 .0 mEq/L AO ADM SS GFR/1.73 sq M.predicted among blacks MDRD (S/P/Bld) [Vol rate/Area] 77 ml/min/1.73sqm Invalid Interpretation Code AO Chemistry S Comment on above: Interpretive Data: GFR Population mean for , Non- Americans Ages 20-29 = 116 mL/min/1.73 sq.m. Ages 30-39 = 107 mL/min/1.73 sq.m. Ages 40-49 = 99 mL/min/1.73 sq.m. Ages 50-59 = 93 mL/min/1.73 sq.m. Ages 60-69 = 85 mL/min/1.73 sq.m. Ages 70+ = 75 mL/min/1.73 sq.m. Chronic Kidney Disease: Less than 60 mL/min/1.73 square meters End Stage Renal Disease: Less than 15 mL/min/1.73 square meters GFR/1.73 sq M.predicted among non-blacks MDRD (S/P/Bld) [Vol rate/Area] 63 ml/min/1.73sqm Invalid Interpretation Code AO Chemistry S Comment on above: Interpretive Data: GFR Population mean for , Non- Americans Ages 20-29 = 116 mL/min/1.73 sq.m. Ages 30-39 = 107 mL/min/1.73 sq.m. Ages 40-49 = 99 mL/min/1.73 sq.m. Ages 50-59 = 93 mL/min/1.73 sq.m. Ages 60-69 = 85 mL/min/1.73 sq.m. Ages 70+ = 75 mL/min/1.73 sq.m. Chronic Kidney Disease: Less than 60 mL/min/1.73 square meters End Stage Renal Disease: Less than 15 mL/min/1.73 square meters Glucose [Mass/Vol] 117 mg/dL High 83 - 110 mg/dL AO ADM SS Glucose [Mass/Vol] 114 mg/dL Invalid Interpretation Code AO Chemistry S Comment on above: Interpretive Data: E stimated average glucose (eAG) is a calculated value from Hemoglobin A1C and is indirect sales representative of the average blood glucose level in the last 2-3 month period. Normal range: less than 114 mg/dL HbA1c (Bld) [Mass fraction] 5.6 % Normal 4.3 - 6.4 % AO ADM SS Phosphate [Mass/Vol] 2.7 mg/dL Normal 2.3 - 4 .1 mg/dL AO ADM SS Potassium [Moles/Vol] 4.7 mmol/L Normal 3.5 - 5.1 mmol/L AO ADM SS Sodium [Moles/Vol] 138 mmol/L Normal 136 - 145 mmol/L AO ADM SS TSH Qn 2.79 m[IU]/L Normal 0.36 - 3.74 mcIU/mL AO ADM SS Urea nitrogen [Mass/Vol] 13 mg/dL Normal 7 - 18 mg/dL AO ADM SS Urea nitrogen/Creatinine [Mass ratio] 15 ratio Normal 7 - 27 ratio AO ADM SS PHOSon 09-14-2024 Phosphate [Mass/Vol] 2.7 mg/dL Normal 2.3-4.1 [facility] Comment on above: Performed By: #### B MP, TSHR, A1C, PHOS, GFR #### [facility] [address] [place], [place] [address] #### B12 #### [facility] [address] [place] [address] TSHRon 09-14-2024 TSH Qn 2.79 m[IU]/L Normal 0.36-3.74 [facility] Comment on above: Performed By: #### B MP, TSHR, A1C, PHOS, GFR #### [facility] [address] [place], [place] [address] #### B12 #### [facility] [address] [place] [address] CNOVon 07-21-2024 CNOV Office Visit (OTFGFL ) KADENROSIE La ([id number]) 1940 F Date Time Provider Department 07/21/24 1:00 PM HEARING AID OTOL AG FAIRLAWNOTFGFL During your visit today, we recorded the following information about you: Hiren Starks AUD 07/21/2024 1:11 PM Signed Rosie Vee 83 year old here today for a routine 1 month follow up. She believes from her research, that she has auditory processing difficulties therefore speech will be difficult in background noise. The patient reports the settings from her previous visit were better than the most recent changes. TESTING: Audiometric testing was completed on 06/11/24 HEARING AID: The hearing aids were inspected and found to be clean. Listening and functional checks were good. The aids were programmed to restore settings from 06/11/24. The patient states the volume is comfortable. PLAN/RECOMMENDATIONS: 1. Monitor hearing aid function and communication ability. 2. Return to the office in 6 months for hearing aid follow up or as needed. 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] Problem List As Of Date: 07/21/2024 (None) Encounter Status:Closed by HIREN STARKS on 07/21/24 [facility] .Auto Diffon 07-13-2024 Basophil, Absolute 0.1 10 3/mcL Normal 0.0-0.2 [facility] ([place]) Comment on above: Performed By: #### T JEAN BOO, , CMP, ANEU, CBC, ADIFF, GFR #### [address] [address] Basophils/100 WBC (Bld) 0.7 % Normal 0.0-2.5 [facility] ([place]) Comment on above: Performed By: #### T JEAN BOO, MG, CMP, ANEU, CBC, ADIFF, GFR #### [address] [address] Eosinophil, Absolute 0.1 10 3/mcL Normal 0.0-0.4 [facility] ([place]) Comment on above: Performed By: #### JEAN VIVEROS, , CMP, ANEU, CBC, ADIFF, GFR #### [address] [address] Eosinophils/100 WBC (Bld) 1.0 % Normal 0.0-7.0 [facility] ([place]) Comment on above: Performed By: #### JEAN VIVEROS, , CMP, ANEU, CBC, ADIFF, GFR #### [address] [address] Lymphocyte, Absolute 2.7 10 3/mcL Normal 0.8-3.9 [facility] ([place]) Comment on above: Performed By: #### JEAN VIVEROS, , CMP, ANEU, CBC, ADIFF, GFR #### [address] [address] Lymphocytes/100 WBC (Bld) 34.9 % Normal 10.0-50.0 [facility] ([place]) Comment on above: Performed By: #### JEAN VIVEROS, MG, CMP, ANEU, CBC, ADIFF, GFR #### [address] [address] Monocyte, Absolute 0.3 10 3/mcL Normal 0.2-1.0 [facility] ([place]) Comment on above: Performed By: #### T JEAN BOO, MG, CMP, ANEU, CBC, ADIFF, GFR #### [address] [address] Monocytes/100 WBC (Bld) 4.3 % Normal 1.7-13.0 [facility] ([place]) Comment on above: Performed By: #### T JEAN BOO, MG, CMP, ANEU, CBC, ADIFF, GFR #### [address] [address] Neutrophils/100 WBC (Bld) 59.1 % Normal 37.0-80.0 [facility] ([place]) Comment on above: Performed By: #### T JEAN BOO, MG, CMP, ANEU, CBC, ADIFF, GFR #### [address] [address] .GFRon 07-13-2024 GFR Non- 56 ml/min/1.73sqm Normal [facility] ([place]) Comment on above: Result Comment: GFR Population mean for , Non- Americans Ages 20-29 = 116 mL/min/1.73 sq.m. Ages 30-39 = 107 mL/min/1.73 sq.m. Ages 40-49 = 99 mL/min/1.73 sq.m. Ages 50-59 = 93 mL/min/1.73 sq.m. Ages 60-69 = 85 mL/min/1.73 sq.m. Ages 70+ = 75 mL/min/1.73 sq.m. Chronic Kidney Disease: Less than 60 mL/min/1.73 square meters End Stage Renal Disease: Less than 15 mL/min/1.73 square meters Performed By: #### U A, UAMICAO #### [address] [address] GFR 68 ml/min/1.73sqm Normal [facility] ([place]) Comment on above: Result Comment: GFR Population mean for , Non- Americans Ages 20-29 = 116 mL/min/1.73 sq.m. Ages 30-39 = 107 mL/min/1.73 sq.m. Ages 40-49 = 99 mL/min/1.73 sq.m. Ages 50-59 = 93 mL/min/1.73 sq.m. Ages 60-69 = 85 mL/min/1.73 sq.m. Ages 70+ = 75 mL/min/1.73 sq.m. Chronic Kidney Disease: Less than 60 mL/min/1.73 square meters End Stage Renal Disease: Less than 15 mL/min/1.73 square meters Performed By: #### JANE Forrester #### [address] [address] .MDWon 07-13-2024 Monocyte Distribution Width 20.96 High 0.00-20.00 [facility] ([place]) Comment on above: Result Comment: For adults in ED, MDW>20.0 may be associated with a higher risk of sepsis during the first 12hrs of hospital admission Performed By: #### JEAN VIVEROS, MG, CMP, ANEU, CBC, ADIFF, GFR #### [place] [id number] .NEUABSon 07-13-2024 Neutrophil, Absolute 4.6 10 3/mcL Normal 2.9-6.2 [facility] ([place]) Comment on above: Performed By: #### JEAN VIVEROS, , CMP, ANEU, CBC, ADIFF, GFR #### [place] [id number] CBCon 07-13-2024 Erythrocyte distribution width (RBC) [Ratio] 12.7 % Normal 11.5-14.5 [facility] ([place]) Comment on above: Performed By: #### T JEAN BOO, , CMP, ANEU, CBC, ADIFF, GFR #### [place] [address] Hematocrit (Bld) [Volume fraction] 41.9 % Normal 37.0-47.0 [facility] ([place]) Comment on above: Performed By: #### JEAN VIVEROS, , CMP, ANEU, CBC, ADIFF, GFR #### [place] [address] Hgb 14.2 G/dL Normal 12.0-16.0 [facility] ([place]) Comment on above: Performed By: #### T JEAN BOO, , CMP, ANEU, CBC, ADIFF, GFR #### [address] [address] MCH (RBC) [Entitic mass] 34.4 pg High 27.0-31.2 [facility] ([place]) Comment on above: Performed By: #### T JEAN BOO, MG, CMP, ANEU, CBC, ADIFF, GFR #### [address] [address] MCHC 34.0 G/dL Normal 33.0-37.0 [facility] ([place]) Comment on above: Performed By: #### JEAN VIVEROS, , CMP, ANEU, CBC, ADIFF, GFR #### [place] [address] [address] MCV (RBC) [Entitic vol] 101.1 fL High 80.0-94.0 [facility] ([place]) Comment on above: Performed By: #### JEAN VIVEROS, , CMP, ANEU, CBC, ADIFF, GFR #### [place] [address] [address] Platelet 259 10 3/mcL Normal 130-400 [facility] ([place]) Comment on above: Performed By: #### JEAN VIVEROS, , CMP, ANEU, CBC, ADIFF, GFR #### [place] [address] [address] Platelet mean volume (Bld) [Entitic vol] 7.3 fL Low 7.4-10.4 [facility] ([place]) Comment on above: Performed By: #### JEAN VIVEROS, MG, CMP, ANEU, CBC, ADIFF, GFR #### [place] [address] [address] RBC 4.14 10 6/mcL Low 4.20-5.40 [facility] ([place]) Comment on above: Performed By: #### T JEAN BOO, MG, CMP, ANEU, CBC, ADIFF, GFR #### [address] [address] WBC 7.8 10 3/mcL Normal 4.6-10.8 [facility] ([place]) Comment on above: Performed By: #### T JEAN BOO, MG, CMP, ANEU, CBC, ADIFF, GFR #### [address] [address] CMPon 07-13-2024 Albumin Level 3.9 G/dL Normal 3.4-4.8 [facility] ([place]) Comment on above: Performed By: #### T JEAN BOO, , CMP, ANEU, CBC, ADIFF, GFR #### [address] [address] Albumin/Globulin [Mass ratio] 1.4 {ratio} Normal 1.1-2.5 [facility] ([place]) Comment on above: Performed By: #### T JEAN BOO, , CMP, ANEU, CBC, ADIFF, GFR #### [address] [address] ALP [Catalytic activity/Vol] 57 U/L Normal 40-135 [facility] ([place]) Comment on above: Performed By: #### T JEAN BOO, , CMP, ANEU, CBC, ADIFF, GFR #### [address] [address] ALT [Catalytic activity/Vol] 22 U/L Normal 14-59 [facility] ([place]) Comment on above: Performed By: #### T JEAN BOO, MG, CMP, ANEU, CBC, ADIFF, GFR #### [address] [address] AST [Catalytic activity/Vol] 19 U/L Normal 10-40 [facility] ([place]) Comment on above: Performed By: #### T JEAN BOO, MG, CMP, ANEU, CBC, ADIFF, GFR #### [address] [address] Bili Total 1.2 mg/dL High 0.2-1.0 [facility] ([place]) Comment on above: Result Comment: Use of this assay is not recommended for patients undergoing treatment with eltrombopag due to the potential for falsely elevated results. Performed By: #### T JEAN BOO, MG, CMP, ANEU, CBC, ADIFF, GFR #### [address] [address] BUN/Creatinine Ratio 15 ratio Normal 7-27 [facility] ([place]) Comment on above: Performed By: #### T JEAN BOO, MG, CMP, ANEU, CBC, ADIFF, GFR #### [address] [address] Calcium [Mass/Vol] 10.1 mg/dL Normal 8.4-10.2 [facility] ([place]) Comment on above: Performed By: #### T JEAN BOO, , CMP, ANEU, CBC, ADIFF, GFR #### [address] [address] Chloride [Moles/Vol] 106 mmol/L Normal 98-107 [facility] ([place]) Comment on above: Performed By: #### T JEAN BOO, MG, CMP, ANEU, CBC, ADIFF, GFR #### [address] [address] CO2 [Moles/Vol] 34 mmol/L High 23-31 [facility] ([place]) Comment on above: Performed By: #### T JEAN BOO, MG, CMP, ANEU, CBC, ADIFF, GFR #### [address] [address] Creatinine [Mass/Vol] 0.95 mg/dL Normal 0.55-1.02 [facility] ([place]) Comment on above: Performed By: #### T JEAN BOO, MG, CMP, ANEU, CBC, ADIFF, GFR #### [address] [address] Electrolyte Balance 2.0 mEq/L Low 4.0-15.0 [facility] ([place]) Comment on above: Performed By: #### T JEAN BOO, MG, CMP, ANEU, CBC, ADIFF, GFR #### [address] [address] Globulin 2.8 G/dL Normal [facility] ([place]) Comment on above: Performed By: #### JEAN VIVEROS, MG, CMP, ANEU, CBC, ADIFF, GFR #### [address] [address] Glucose [Mass/Vol] 125 mg/dL High 83-110 [facility] ([place]) Comment on above: Performed By: #### T JEAN BOO, MG, CMP, ANEU, CBC, ADIFF, GFR #### [address] [address] Potassium [Moles/Vol] 4.7 mmol/L Normal 3.5-5.1 [facility] ([place]) Comment on above: Performed By: #### JEAN VIVEROS, , CMP, ANEU, CBC, ADIFF, GFR #### [address] [address] Sodium [Moles/Vol] 142 mmol/L Normal 136-145 [facility] ([place]) Comment on above: Performed By: #### JEAN VIVEROS, , CMP, ANEU, CBC, ADIFF, GFR #### [address] [address] Total Protein 6.7 G/dL Normal 6.4-8.2 [facility] ([place]) Comment on above: Performed By: #### JEAN VIVEROS, MG, CMP, ANEU, CBC, ADIFF, GFR #### [address] [address] Urea nitrogen [Mass/Vol] 14 mg/dL Normal 7-18 [facility] ([place]) Comment on above: Performed By: #### JEAN VIVEROS, MG, CMP, ANEU, CBC, ADIFF, GFR #### [address] [address] LABORATORYOrdered By: SYSTEM SYSTEM on 07-13-2024 Troponin I.cardiac DL <= 0.01 ng/mL [Mass/Vol] 7 ng/L Normal 0 - 51 ng/L AO ADM SS Comment on above: Interpretive Data: H igh Sensitive Troponin I Reference Ranges: Female: 0-51 ng/L Male: 0-76 ng/L Testing performed on [employer] using a homogeneous sandwich chemiluminescent immunoassay based on [employer] technology. Albumin BCP dye [Mass/Vol] 3.9 G/dL Normal 3.4 - 4.8 G/dL AO ADM SS Albumin/Globulin [Mass ratio] 1.4 {ratio} Normal 1.1 - 2.5 ratio AO ADM SS ALP [Catalytic activity/Vol] 57 U/L Normal 40 - 135 U/L AO ADM SS ALT With P-5'-P [Catalytic activity/Vol] 22 U/L Normal 14 - 59 U/L AO ADM SS AST With P-5'-P [Catalytic activity/Vol] 19 U/L Normal 10 - 40 U/L AO ADM SS Basophil, Absolute 0.1 103/mcL Normal 0.0 - 0.2 10^3/mcL AO Workflow SS Basophils/100 WBC (Bld) 0.7 % Normal 0.0 - 2.5 % AO Workflow SS Bilirubin [Mass/Vol] 1.2 mg/dL High 0.2 - 1 .0 mg/dL AO ADM SS Comment on above: Interpretive Data: U se of this assay is not recommended for patients undergoing treatment with eltrombopag due to the potential for falsely elevated results. Calcium [Mass/Vol] 10.1 mg/dL Normal 8.4 - 10. 2 mg/dL AO ADM SS Chloride [Moles/Vol] 106 mmol/L Normal 98 - 10 7 mmol/L AO ADM SS CO2 [Moles/Vol] 34 mmol/L High 23 - 31 mmol/L AO ADM SS Creatinine [Mass/Vol] 0.95 mg/dL Normal 0.55 - 1.02 mg/dL AO ADM SS Electrolyte Balance 2.0 mEq/L Low 4.0 - 15 .0 mEq/L AO ADM SS Eosinophil, Absolute 0.1 103/mcL Normal 0.0 - 0 .4 10^3/mcL AO Workflow SS Eosinophils/100 WBC (Bld) 1.0 % Normal 0.0 - 7.0 % AO Workflow SS Erythrocyte distribution width (RBC) [Ratio] 12.7 % Normal 11.5 - 14.5 % AO Workflow SS GFR/1.73 sq M.predicted among blacks MDRD (S/P/Bld) [Vol rate/Area] 68 ml/min/1.73sqm Invalid Interpretation Code AO Chemistry S Comment on above: Interpretive Data: GFR Population mean for , Non- Americans Ages 20-29 = 116 mL/min/1.73 sq.m. Ages 30-39 = 107 mL/min/1.73 sq.m. Ages 40-49 = 99 mL/min/1.73 sq.m. Ages 50-59 = 93 mL/min/1.73 sq.m. Ages 60-69 = 85 mL/min/1.73 sq.m. Ages 70+ = 75 mL/min/1.73 sq.m. Chronic Kidney Disease: Less than 60 mL/min/1.73 square meters End Stage Renal Disease: Less than 15 mL/min/1.73 square meters GFR/1.73 sq M.predicted among non-blacks MDRD (S/P/Bld) [Vol rate/Area] 56 ml/min/1.73sqm Invalid Interpretation Code AO Chemistry S Comment on above: Interpretive Data: GFR Population mean for , Non- Americans Ages 20-29 = 116 mL/min/1.73 sq.m. Ages 30-39 = 107 mL/min/1.73 sq.m. Ages 40-49 = 99 mL/min/1.73 sq.m. Ages 50-59 = 93 mL/min/1.73 sq.m. Ages 60-69 = 85 mL/min/1.73 sq.m. Ages 70+ = 75 mL/min/1.73 sq.m. Chronic Kidney Disease: Less than 60 mL/min/1.73 square meters End Stage Renal Disease: Less than 15 mL/min/1.73 square meters Globulin 2.8 G/dL Invalid Interpretation Code AO ADM SS Glucose [Mass/Vol] 125 mg/dL High 83 - 110 mg/dL AO ADM SS Hematocrit (Bld) [Volume fraction] 41.9 % Normal 37.0 - 47.0 % AO Workflow SS Hemoglobin (Bld) [Mass/Vol] 14.2 G/dL Normal 12.0 - 16.0 G/dL AO Workflow SS Lymphocyte, Absolute 2.7 103/mcL Normal 0.8 - 3 .9 10^3/mcL AO Workflow SS Lymphocytes/100 WBC (Bld) 34.9 % Normal 10.0 - 50.0 % AO Workflow SS Magnesium [Mass/Vol] 1.9 mg/dL Normal 1.8 - 2 .4 mg/dL AO ADM SS MCH (RBC) [Entitic mass] 34.4 pg High 27.0 - 31.2 pg AO Workflow SS MCHC 34.0 G/dL Normal 33.0 - 37.0 G/dL AO Workflow SS MCV (RBC) [Entitic vol] 101.1 fL High 80.0 - 94.0 fL AO Workflow SS Monocyte distribution width Auto (Bld) [Entitic vol] 20.96 1 High 0.00 - 20.00 AO Workflow SS Comment on above: Result Comment: For adults in ED, MDW>20.0 may be associated with a higher risk of sepsis during the first 12hrs of hospital admission Monocyte, Absolute 0.3 103/mcL Normal 0.2 - 1.0 10^3/mcL AO Workflow SS Monocytes/100 WBC (Bld) 4.3 % Normal 1.7 - 13.0 % AO Workflow SS Neutrophil, Absolute 4.6 103/mcL Normal 2.9 - 6 .2 10^3/mcL AO Workflow SS Neutrophils/100 WBC (Bld) 59.1 % Normal 37.0 - 80.0 % AO Workflow SS Platelet mean volume (Bld) [Entitic vol] 7.3 fL Low 7.4 - 10.4 fL AO Workflow SS Platelets (Bld) [#/Vol] 259 103/mcL Normal 130 - 400 10^3/mcL AO Workflow SS Potassium [Moles/Vol] 4.7 mmol/L Normal 3.5 - 5.1 mmol/L AO ADM SS Protein [Mass/Vol] 6.7 G/dL Normal 6.4 - 8.2 G/dL AO ADM SS RBC (Bld) [#/Vol] 4.14 106/mcL Low 4.20 - 5.4 0 10^6/mcL AO Workflow SS Sodium [Moles/Vol] 142 mmol/L Normal 136 - 145 mmol/L AO ADM SS Troponin I.cardiac DL <= 0.01 ng/mL [Mass/Vol] 6 ng/L Normal 0 - 51 ng/L AO ADM SS Comment on above: Interpretive Data: H igh Sensitive Troponin I Reference Ranges: Female: 0-51 ng/L Male: 0-76 ng/L Testing performed on [employer] using a homogeneous sandwich chemiluminescent immunoassay based on LOCI technology. Urea nitrogen [Mass/Vol] 14 mg/dL Normal 7 - 18 mg/dL AO ADM SS Urea nitrogen/Creatinine [Mass ratio] 15 ratio Normal 7 - 27 ratio AO ADM SS WBC (Bld) [#/Vol] 7.8 103/mcL Normal 4.6 - 10.8 10^3/mcL AO Workflow SS MGon 07-13-2024 Magnesium [Mass/Vol] 1.9 mg/dL Normal 1.8-2.4 [facility] ([place]) Comment on above: Performed By: #### T JEAN BOO, , CMP, ANEU, CBC, ADIFF, GFR #### [address] [address] TROPHSon 07-13-2024 High Sensitivity Troponin I 7 ng/L Normal 0-51 [facility] ([place]) Comment on above: Result Comment: High Sensitive Troponin I Reference Ranges: Female: 0-51 ng/L Male: 0-76 ng/L Testing performed on [employer] using a homogeneous sandwich chemiluminescent immunoassay based on WillCall technology. Performed By: #### U JANE Hall #### [address] [address] High Sensitivity Troponin I 6 ng/L Normal 0-51 [facility] ([place]) Comment on above: Result Comment: High Sensitive Troponin I Reference Ranges: Female: 0-51 ng/L Male: 0-76 ng/L Testing performed on [employer] EX using a homogeneous sandwich chemiluminescent immunoassay based on WillCall technology. Performed By: #### T JEAN BOO, MG, CMP, ANEU, CBC, ADIFF, GFR #### [facility] [address] [address] XR CHEST 1 VIEWon 07-13-2024 XR CHEST 1 VIEW ORIGINAL EXAMINATION: ONE XRAY VIEW OF THE CHEST 07/13/2024 2:17 pm COMPARISON: 11/09/2023 HISTORY: ORDERING SYSTEM PROVIDED HISTORY: Reason for Exam: chest pain IMPRESSION: Partially visualized reverse right shoulder arthroplasty. Multifocal degenerative changes of the osseous structures. Lung hyperinflation. Cardiomediastinal silhouette is within normal limits. Peribronchial thickening may be related to bronchitis versus edema. Patchy bibasilar opacities. Interstitial opacities in the right mid to lower lung zone have a slightly nodular appearance. Costophrenic angles are sharp. No pneumothorax. Biapical pleural thickening/scarring. Interpreted by: Ladan Zhang Preliminary Report By: Ladan Zhang Electronically signed By Ladan Zhang Dictated Date: 07/13/2024 2:19:26 PM Prelim Date: 07/13/2024 2:21:53 PM Sign Date: 07/13/2024 2:21:53 PM Ordering Provider: MAGO Hercules [facility] ([place]) OVon 06-24-2024 CNOV Office Visit (OTFGFL ) ROSIE VEE I ([id number]) 1940 F Date Time Provider Department 06/24/24 10:00 AM HEARING AID OTOL AG FAIRLAWNOTFGFL During your visit today, we recorded the following information about you: Hiren Starks, AUD 06/24/2024 10:20 AM Signed Rosie Vee 83 year old here today for a routine 2 week follow up. The patient reports not being in group situations during the past two weeks however has several meetings scheduled in the near future. She reports wearing the aids regularly and hasn't found a difference in her hearing ability when she removed the aids. PHYSICAL EXAM: Otoscopic inspection revealed non occluding cerumen bilaterally TESTING: Audiometric testing was completed on 06/11/24 HEARING AID: The hearing aids were inspected and found to be clean. Listening and functional checks were good. The aids were programmed to increase the gain for mid to high frequency inputs X3 bilaterally. We discussed strategies for background noise and music. PLAN/RECOMMENDATIONS: 1. Monitor hearing aid function and communication ability. 2. Return to the office in 1 months for hearing aid follow up or as needed. 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] Problem List As Of Date: 06/24/2024 (None) Encounter Status:Closed by HIREN STARKS on 06/24/24 Normal [facility] A1Con 06-14-2024 HbA1c (Bld) [Mass fraction] 5.5 % Normal 4.3-6.4 [facility] ([place]) Comment on above: Performed By: #### T JEAN BOO, MG, CMP, ANEU, CBC, ADIFF, GFR #### [place] [id number] FT4on 06-14-2024 Free T4 [Mass/Vol] 1.01 ng/dL Normal 0.76-1.46 [facility] ([place]) Comment on above: Performed By: #### T JEAN BOO, , CMP, ANEU, CBC, ADIFF, GFR #### [place] [address] LABORATORYOrdered By: SYSTEM SYSTEM on 06-14-2024 Free T4 [Mass/Vol] 1.01 ng/dL Normal 0.76 - 1. 46 ng/dL AO ADM SS HbA1c (Bld) [Mass fraction] 5.5 % Normal 4.3 - 6.4 % AO ADM SS TSH Qn 2.15 m[IU]/L Normal 0.36 - 3.74 mcIU/mL AO ADM SS TSHon 06-14-2024 TSH Qn 2.15 m[IU]/L Normal 0.36-3.74 [facility] ([place]) Comment on above: Performed By: #### T JEAN BOO, , CMP, ANEU, CBC, ADIFF, GFR #### [place] [id number] CNOVon 06-11-2024 CNOV Office Visit (OTFGFL ) ROSIE VEE I ([id number]) 1940 F Date Time Provider Department 06/11/24 3:00 PM HEARING AID OTOL AG FAIRLAWNOTFGFL During your visit today, we recorded the following information about you: Hiren Starks AUD 06/11/2024 3:36 PM Signed Rosie Vee 83 year old here today for a hearing aid follow up. The patient reports being fit with aids approximately 2 years ago and the fit has never been right. Conversations in noise are unclear and she is unable to hear lyrics in music. 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 Speech understanding ability is excellent is the right ear and good in the left HEARING AID: The hearing aids were inspected and found to be functioning properly. The aids were programmed to increase the gain for moderate inputs bilaterally, and decrease MPO and loud imputs. We discussed aural rehabilitation and recommended she wear the aids daily for two weeks and return for follow up PLAN/RECOMMENDATIONS: 1. Monitor hearing aid function and communication ability. 2. Return to the office in 2 weeks for hearing aid follow up or as needed. 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 Speech understanding ability is excellent is the right ear and good in the left [facility] BD BONE DENSITY DEXA AXIAL S Susan 04-07-2024 BD BONE DENSITY DEXA AXIAL SKELETON ORIGINAL EXAMINATION: BONE DENSITOMETRY 04/07/2024 11:07 am TECHNIQUE: A bone density dual x-ray absorptiometry (DEXA) scan was performed of the axial (e.g. hips, spine) and/or appendicular (e.g. radius) skeleton as appropriate. COMPARISON: 07/26/2022 HISTORY: ORDERING SYSTEM PROVIDED HISTORY: Reason for Exam: Osteoporosis Screening FINDINGS: T Score Left Femoral Neck: -1.3 Left Femoral Neck: 0.708 (g/cm2) T Score Left Hip: -0.4 Left Hip: 0.888 (g/cm2) T Score Lumbar Spine: 2.4 Lumbar Spine: 1.306 (g/cmd2) BMD Change from previous Hip:-0.8 % BMD Change from previous Lumbar Spine: 6.6 % FRAX: 10 year fracture risk assessment Major osteoporotic fracture: 12% Hip fracture: 2.9% IMPRESSION: Osteopenia by WHO criteria. World Health Organization criteria: (Comparing with young normal sex matched population) - Normal: T-score at or above -1 SD (standard deviation) - Osteopenia: T-score between -1 and -2.5 SD - Osteoporosis: T-score at or below -2.5 SD The NOF recommends that FDA-approved medical therapies be considered in post-menopausal women and men age >/= 50 years with a: * Hip or vertebral fracture, or * T-score of /= 20% for major osteoporotic fractures or * >/= 3% for hip fractures All treatment decisions require clinical judgement and consideration of individual patient factors, including patient preferences, comorbidities, previous drug use, risk factors not captured in the FRAX registered model (e.g., frailty, falls, vitamin D deficiency, increased bone turnover, interval significant decline in bone density) and possible under- or over-estimation of fracture risk by FRAX. Interpreted by: Anish Tong DO Preliminary Report By: Anish Tong DO Electronically signed By Anish Tong DO Dictated Date: 04/07/2024 11:17:49 AM Prelim Date: 04/07/2024 11:18:35 AM Sign Date: 04/07/2024 11:18:35 AM Ordering Provider: LUIS SHETTY [facility] ([place]) 04-02-2024 36 Message released to patient as written. YES Patient's further questions if applicable: NA Were all questions from office addressed or relayed to the patient from encounter: Yes [facility] 04-01-2024 36 LVM for pt to call back. Office# provided. 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 I asked our audiologists and they recommend going to or [facility]. [facility] 03-31-2024 36 CAC please see message from provider below [facility] 36 This is not an entit y I have ever heard of or have any experience treating you can let the patient know or asked Dr. Zheng for Dr. Kowalski [facility] 03-30-2024 36 Name of caller: Rosie Contact phone number: [phone] Relationship to Patient: patient Provider: new patient Practice: [facility] Chief Complaint/Reason for Call: Pt states she would like to know if any of the providers in the office are experienced with auditory neuropathy spectrum disorder. Pt states she is looking for a provider that has history dealing with this disorder specifically and can get a referral to be seen if the office can treat it. Please advise. Best time of day caller can be reached: any Patient advised that office/PCP has 24-48 business hours to return their call: No [facility] .Auto Diff03-23-2024 Basophil, Absolute 0.0 10 3/mcL Normal 0.0-0.2 [facility] ([place]) Comment on above: Performed By: #### JANE Forrester #### [address] [address] Basophils/100 WBC (Bld) 0.6 % Normal 0.0-2.5 [facility] ([place]) Comment on above: Performed By: #### U A, UAMICAO #### [address] [address] Eosinophil, Absolute 0.2 10 3/mcL Normal 0.0-0.4 [facility] ([place]) Comment on above: Performed By: #### U A, UAMICAO #### [address] [address] Eosinophils/100 WBC (Bld) 2.5 % Normal 0.0-7.0 [facility] ([place]) Comment on above: Performed By: #### U A, UAMICAO #### [address] [address] Lymphocyte, Absolute 2.8 10 3/mcL Normal 0.8-3.9 [facility] ([place]) Comment on above: Performed By: #### U A, UAMICAO #### [address] [address] Lymphocytes/100 WBC (Bld) 43.7 % Normal 10.0-50.0 [facility] ([place]) Comment on above: Performed By: #### U A, UAMICAO #### [address] [address] Monocyte, Absolute 0.6 10 3/mcL Normal 0.2-1.0 [facility] ([place]) Comment on above: Performed By: #### U A, UAMICAO #### [address] [address] Monocytes/100 WBC (Bld) 9.0 % Normal 1.7-13.0 [facility] ([place]) Comment on above: Performed By: #### U A, UAMICAO #### [address] [address] Neutrophils/100 WBC (Bld) 44.2 % Normal 37.0-80.0 [facility] ([place]) Comment on above: Performed By: #### U A, UAMICAO #### [address] [address] .GFRon 03-23-2024 GFR Non- 65 ml/min/1.73sqm Normal [facility] ([place]) Comment on above: Result Comment: GFR Population mean for , Non- Americans Ages 20-29 = 116 mL/min/1.73 sq.m. Ages 30-39 = 107 mL/min/1.73 sq.m. Ages 40-49 = 99 mL/min/1.73 sq.m. Ages 50-59 = 93 mL/min/1.73 sq.m. Ages 60-69 = 85 mL/min/1.73 sq.m. Ages 70+ = 75 mL/min/1.73 sq.m. Chronic Kidney Disease: Less than 60 mL/min/1.73 square meters End Stage Renal Disease: Less than 15 mL/min/1.73 square meters Performed By: #### U A, UAMICAO #### [address] [address] GFR 79 ml/min/1.73sqm Normal [facility] ([place]) Comment on above: Result Comment: GFR Population mean for , Non- Americans Ages 20-29 = 116 mL/min/1.73 sq.m. Ages 30-39 = 107 mL/min/1.73 sq.m. Ages 40-49 = 99 mL/min/1.73 sq.m. Ages 50-59 = 93 mL/min/1.73 sq.m. Ages 60-69 = 85 mL/min/1.73 sq.m. Ages 70+ = 75 mL/min/1.73 sq.m. Chronic Kidney Disease: Less than 60 mL/min/1.73 square meters End Stage Renal Disease: Less than 15 mL/min/1.73 square meters Performed By: #### U A, UAMICAO #### [address] [address] .NEUABSon 03-23-2024 Neutrophil, Absolute 2.8 10 3/mcL Low 2.9-6.2 [facility] ([place]) Comment on above: Performed By: #### U A, UAMICAO #### [address] [address] CBCon 03-23-2024 Erythrocyte distribution width (RBC) [Ratio] 12.9 % Normal 11.5-14.5 [facility] ([place]) Comment on above: Performed By: #### JANE Forrester #### [address] [address] Hematocrit (Bld) [Volume fraction] 40.8 % Normal 37.0-47.0 [facility] ([place]) Comment on above: Performed By: #### JANE Forrester #### [address] [address] Hgb 14.1 G/dL Normal 12.0-16.0 [facility] ([place]) Comment on above: Performed By: #### JANE Forrester #### [place] [address] [address] MCH (RBC) [Entitic mass] 34.1 pg High 27.0-31.2 [facility] ([place]) Comment on above: Performed By: #### JANE Forrester #### [address] [address] MCHC 34.5 G/dL Normal 33.0-37.0 [facility] ([place]) Comment on above: Performed By: #### JANE Forrester #### [address] [address] MCV (RBC) [Entitic vol] 98.9 fL High 80.0-94.0 [facility] ([place]) Comment on above: Performed By: #### JANE Forrester #### [address] [address] Platelet 258 10 3/mcL Normal 130-400 [facility] ([place]) Comment on above: Performed By: #### ADELA ForresterAO #### [place] [address] [address] Platelet mean volume (Bld) [Entitic vol] 7.3 fL Low 7.4-10.4 [facility] ([place]) Comment on above: Performed By: #### JANE Forrester #### [address] [address] RBC 4.12 10 6/mcL Low 4.20-5.40 [facility] ([place]) Comment on above: Performed By: #### U A, UAMICAO #### [address] [address] WBC 6.4 10 3/mcL Normal 4.6-10.8 [facility] ([place]) Comment on above: Performed By: #### U Isabel, UAMICAO #### [address] [address] CMPon 03-23-2024 Albumin Level 4.1 G/dL Normal 3.4-4.8 [facility] ([place]) Comment on above: Performed By: #### Denis Hall, UAMICAO #### [address] [address] Albumin/Globulin [Mass ratio] 1.7 {ratio} Normal 1.1-2.5 [facility] ([place]) Comment on above: Performed By: #### Denis Hall UAMICAO #### [address] [address] ALP [Catalytic activity/Vol] 54 U/L Normal 40-135 [facility] ([place]) Comment on above: Performed By: #### U Isabel, UAMICAO #### [address] [address] ALT [Catalytic activity/Vol] 25 U/L Normal 14-59 [facility] ([place]) Comment on above: Performed By: #### U A, UAMICAO #### [address] [address] AST [Catalytic activity/Vol] 13 U/L Normal 10-40 [facility] ([place]) Comment on above: Performed By: #### U A, UAMICAO #### [address] [address] Bili Total 0.8 mg/dL Normal 0.2-1.0 [facility] ([place]) Comment on above: Result Comment: Use of this assay is not recommended for patients undergoing treatment with eltrombopag due to the potential for falsely elevated results. Performed By: #### U Isabel UAMICAO #### [address] [address] BUN/Creatinine Ratio 19 ratio Normal 7-27 [facility] ([place]) Comment on above: Performed By: #### U A UAMICAO #### [address] [address] Calcium [Mass/Vol] 9.5 mg/dL Normal 8.4-10.2 [facility] ([place]) Comment on above: Performed By: #### Denis Hall UAMICAO #### [place] [id number] Chloride [Moles/Vol] 104 mmol/L Normal 98-107 [facility] ([place]) Comment on above: Performed By: #### U Isabel UAMICAO #### [address] [address] CO2 [Moles/Vol] 30 mmol/L Normal 23-31 [facility] ([place]) Comment on above: Performed By: #### Denis Hall UAMICAO #### [address] [address] Creatinine [Mass/Vol] 0.83 mg/dL Normal 0.55-1.02 [facility] ([place]) Comment on above: Performed By: #### U Isabel UAMICAO #### [address] [address] Electrolyte Balance 11.0 mEq/L Normal 4.0-15.0 [facility] ([place]) Comment on above: Performed By: #### U Isabel UAMICAO #### [address] [address] Globulin 2.4 G/dL Normal [facility] ([place]) Comment on above: Performed By: #### U A UAMICAO #### [address] [address] Glucose [Mass/Vol] 100 mg/dL Normal 83-110 [facility] ([place]) Comment on above: Performed By: #### U Isabel UAMICAO #### [address] [address] Potassium [Moles/Vol] 5.0 mmol/L Normal 3.5-5.1 [facility] ([place]) Comment on above: Performed By: #### U A UAMICAO #### [address] [address] Sodium [Moles/Vol] 145 mmol/L Normal 136-145 [facility] ([place]) Comment on above: Performed By: #### U Isabel UAMICAO #### [address] [address] Total Protein 6.5 G/dL Normal 6.4-8.2 [facility] ([place]) Comment on above: Performed By: #### U Isabel UAMICAO #### [address] [address] Urea nitrogen [Mass/Vol] 16 mg/dL Normal 7-18 [facility] ([place]) Comment on above: Performed By: #### Denis Hall UAMICAO #### [address] [address] FT4on 03-23-2024 Free T4 [Mass/Vol] 1.04 ng/dL Normal 0.76-1.46 [facility] ([place]) Comment on above: Performed By: #### U Isabel UAMICAO #### [address] [address] LIPIDon 03-23-2024 Cholesterol [Mass/Vol] 201 mg/dL High 0-200 [facility] ([place]) Comment on above: Result Comment: Chol esterol Reference Interval: Less than 200 Desirable 200-239 Borderline high risk 240 and above High risk Performed By: #### U A UAMICAO #### [address] [address] Cholesterol in HDL [Mass/Vol] 67 mg/dL High 40-60 [facility] ([place]) Comment on above: Performed By: #### JANE Forrester #### [address] [address] Cholesterol in LDL [Mass/Vol] 108 mg/dL Normal 0-130 [facility] ([place]) Comment on above: Performed By: #### JANE Forrester #### [address] [address] Triglyceride [Mass/Vol] 129 mg/dL Normal 0-150 [facility] ([place]) Comment on above: Result Comment: Trig lyceride Reference Interval: Less than 150 Normal 150-199 Borderline high risk 200-499 High risk 500 or higher Very high risk Performed By: #### JANE Forrester #### [place] [address] TSHon 03-23-2024 TSH Qn 4.11 m[IU]/L High 0.36-3.74 [facility] ([place]) Comment on above: Performed By: #### JANE Forrester #### [address] [address] VIDHon 03-23-2024 Vit. D 25-Hydroxy 64.3 ng/mL Normal [facility] ([place]) Comment on above: Result Comment: Inte rpretive Values Based on Total 25(OH) Vitamin D: Deficient <20 ng/mL Insufficient 20 - <30 ng/mL Sufficient 30-100 ng/mL Performed By: #### JANE Forrester #### [address] [address] .Auto Diffon 11-09-2023 Basophil, Absolute 0.0 10 3/mcL Normal 0.0-0.2 [facility] ([place]) Comment on above: Performed By: #### JANE Forrester #### [address] [address] Basophils/100 WBC (Bld) 0.2 % Normal 0.0-2.5 [facility] ([place]) Comment on above: Performed By: #### JANE Forrester #### [place] [address] [address] Eosinophil, Absolute 0.0 10 3/mcL Normal 0.0-0.4 [facility] ([place]) Comment on above: Performed By: #### U Isabel UAMICAO #### [address] [address] Eosinophils/100 WBC (Bld) 0.1 % Normal 0.0-7.0 [facility] ([place]) Comment on above: Performed By: #### U A UAMICAO #### [address] [address] Lymphocyte, Absolute 0.5 10 3/mcL Low 0.8-3.9 [facility] ([place]) Comment on above: Performed By: #### U Isabel UAMICAO #### [address] [address] Lymphocytes/100 WBC (Bld) 7.7 % Low 10.0-50.0 [facility] ([place]) Comment on above: Performed By: #### Denis Hall UAMICAO #### [address] [address] Monocyte, Absolute 0.2 10 3/mcL Normal 0.2-1.0 [facility] ([place]) Comment on above: Performed By: #### U Isabel UAMICAO #### [address] [address] Monocytes/100 WBC (Bld) 2.8 % Normal 1.7-13.0 [facility] ([place]) Comment on above: Performed By: #### U A UAMICAO #### [address] [address] Neutrophils/100 WBC (Bld) 89.2 % High 37.0-80.0 [facility] ([place]) Comment on above: Performed By: #### U Isabel UAMICAO #### [address] [address] .GFRon 11-09-2023 GFR 73 ml/min/1.73sqm Normal [facility] ([place]) Comment on above: Result Comment: GFR Population mean for , Non- Americans Ages 20-29 = 116 mL/min/1.73 sq.m. Ages 30-39 = 107 mL/min/1.73 sq.m. Ages 40-49 = 99 mL/min/1.73 sq.m. Ages 50-59 = 93 mL/min/1.73 sq.m. Ages 60-69 = 85 mL/min/1.73 sq.m. Ages 70+ = 75 mL/min/1.73 sq.m. Chronic Kidney Disease: Less than 60 mL/min/1.73 square meters End Stage Renal Disease: Less than 15 mL/min/1.73 square meters Performed By: #### U A, UAMICAO #### [address] [address] GFR Non- 60 ml/min/1.73sqm Normal [facility] ([place]) Comment on above: Result Comment: GFR Population mean for , Non- Americans Ages 20-29 = 116 mL/min/1.73 sq.m. Ages 30-39 = 107 mL/min/1.73 sq.m. Ages 40-49 = 99 mL/min/1.73 sq.m. Ages 50-59 = 93 mL/min/1.73 sq.m. Ages 60-69 = 85 mL/min/1.73 sq.m. Ages 70+ = 75 mL/min/1.73 sq.m. Chronic Kidney Disease: Less than 60 mL/min/1.73 square meters End Stage Renal Disease: Less than 15 mL/min/1.73 square meters Performed By: #### U A, UAMICAO #### [address] [address] .MDWon 11-09-2023 Monocyte Distribution Width 29.09 High 0.00-20.00 [facility] ([place]) Comment on above: Result Comment: For adults in ED, MDW>20.0 may be associated with a higher risk of sepsis during the first 12hrs of hospital admission Performed By: #### U A, UAMICAO #### [address] [address] .NEUABSon 11-09-2023 Neutrophil, Absolute 6.2 10 3/mcL Normal 2.9-6.2 [facility] ([place]) Comment on above: Performed By: #### U A, UAMICAO #### [place] [address] .Urinalysis Microscopic (AO) on 11-09-2023 UA Bacteria 1+ /hpf Abnormal [facility] ([place]) Comment on above: Performed By: #### U A, UAMICAO #### [place] [address] UA Mucous 1+ /hpf Normal [facility] ([place]) Comment on above: Performed By: #### U A, UAMICAO #### [place] [address] UA RBC 0-5 Abnormal None Seen [facility] ([place]) Comment on above: Performed By: #### U A, UAMICAO #### [place] [address] UA Squam Epithelial 5-10 Abnormal None Seen [facility] ([place]) Comment on above: Performed By: #### U A, UAMICAO #### [place] [address] UA WBC 0-5 Abnormal None Seen [facility] ([place]) Comment on above: Performed By: #### U A, UAMICAO #### [place] [id number] CBCon 11-09-2023 Erythrocyte distribution width (RBC) [Ratio] 12.8 % Normal 11.5-14.5 [facility] ([place]) Comment on above: Performed By: #### U A, UAMICAO #### [place] [id number] Hematocrit (Bld) [Volume fraction] 44.4 % Normal 37.0-47.0 [facility] ([place]) Comment on above: Performed By: #### U A, UAMICAO #### [place] [address] Hgb 15.1 G/dL Normal 12.0-16.0 [facility] ([place]) Comment on above: Performed By: #### JANE Forrester #### [address] [address] MCH (RBC) [Entitic mass] 33.2 pg High 27.0-31.2 [facility] ([place]) Comment on above: Performed By: #### JANE Forrester #### [address] [address] MCHC 33.9 G/dL Normal 33.0-37.0 [facility] ([place]) Comment on above: Performed By: #### JANE Forrester #### [place] [address] [address] MCV (RBC) [Entitic vol] 97.9 fL High 80.0-94.0 [facility] ([place]) Comment on above: Performed By: #### JANE Forrester #### [address] [address] Platelet 236 10 3/mcL Normal 130-400 [facility] ([place]) Comment on above: Performed By: #### JANE Forrester #### [address] [address] Platelet mean volume (Bld) [Entitic vol] 7.5 fL Normal 7.4-10.4 [facility] ([place]) Comment on above: Performed By: #### JANE Forrester #### [address] [address] RBC 4.53 10 6/mcL Normal 4.20-5.40 [facility] ([place]) Comment on above: Performed By: #### JANE Forrester #### [address] [address] WBC 7.0 10 3/mcL Normal 4.6-10.8 [facility] ([place]) Comment on above: Performed By: #### JANE Forrester #### [place] [address] [address] CMPon 11-09-2023 Albumin Level 3.9 G/dL Normal 3.4-4.8 [facility] ([place]) Comment on above: Performed By: #### U A, UAMICAO #### [address] [address] Albumin/Globulin [Mass ratio] 1.3 {ratio} Normal 1.1-2.5 [facility] ([place]) Comment on above: Performed By: #### U A, UAMICAO #### [address] [address] ALP [Catalytic activity/Vol] 56 U/L Normal 40-135 [facility] ([place]) Comment on above: Performed By: #### U A, UAMICAO #### [address] [address] ALT [Catalytic activity/Vol] 24 U/L Normal 14-59 [facility] ([place]) Comment on above: Performed By: #### U Isabel UAMICAO #### [address] [address] AST [Catalytic activity/Vol] 17 U/L Normal 10-40 [facility] ([place]) Comment on above: Performed By: #### U Isabel UAMICAO #### [address] [address] Bili Total 1.2 mg/dL High 0.2-1.0 [facility] ([place]) Comment on above: Result Comment: Use of this assay is not recommended for patients undergoing treatment with eltrombopag due to the potential for falsely elevated results. Performed By: #### U A, UAMICAO #### [address] [address] BUN/Creatinine Ratio 17 ratio Normal 7-27 [facility] ([place]) Comment on above: Performed By: #### U A, UAMICAO #### [address] [address] Calcium [Mass/Vol] 8.9 mg/dL Normal 8.4-10.2 [facility] ([place]) Comment on above: Performed By: #### U A, UAMICAO #### [address] [address] Chloride [Moles/Vol] 101 mmol/L Normal 98-107 [facility] ([place]) Comment on above: Performed By: #### U A, UAMICAO #### [address] [address] CO2 [Moles/Vol] 23 mmol/L Normal 23-31 [facility] ([place]) Comment on above: Performed By: #### U A, UAMICAO #### [address] [address] Creatinine [Mass/Vol] 0.89 mg/dL Normal 0.55-1.02 [facility] ([place]) Comment on above: Performed By: #### U A, UAMICAO #### [address] [address] Electrolyte Balance 13.0 mEq/L Normal 4.0-15.0 [facility] ([place]) Comment on above: Performed By: #### U A, UAMICAO #### [address] [address] Globulin 2.9 G/dL Normal [facility] ([place]) Comment on above: Performed By: #### U A, UAMICAO #### [address] [address] Glucose [Mass/Vol] 147 mg/dL High 83-110 [facility] ([place]) Comment on above: Performed By: #### U A, UAMICAO #### [address] [address] Potassium [Moles/Vol] 4.1 mmol/L Normal 3.5-5.1 [facility] ([place]) Comment on above: Performed By: #### U A, UAMICAO #### [address] [address] Sodium [Moles/Vol] 137 mmol/L Normal 136-145 [facility] ([place]) Comment on above: Performed By: #### U A, UAMICAO #### [address] [address] Total Protein 6.8 G/dL Normal 6.4-8.2 [facility] ([place]) Comment on above: Performed By: #### U A, UAMICAO #### [place] [address] [place], [place] [address] Urea nitrogen [Mass/Vol] 15 mg/dL Normal 7-18 [facility] ([place]) Comment on above: Performed By: #### U A, UAMICAO #### [address] [address] DIMERon 11-09-2023 D-Dimer <200 Normal 0-230 [facility] ([place]) Comment on above: Result Comment: DDN: Results reported in D-DU ng/mL. Negative for D-dimer. DVT/PE is highly unlikely. Note: False negative results may be seen in patients on anticoagulant therapy. The result of the D-Dimer test should be evaluated in the context of all the clinical and laboratory data available. In those instances where the laboratory result does not agree with the clinical evaluation, additional tests should be performed accordingly. If the D-Dimer result is used to exclude DVT or PE, the recommended cutoff value is less than 230 ng/mL. The D-Dimer result should not be used alone to rule in DVT/PE, but should be used in conjunction with a clinical pretest probability (PTP)assessment model to exclude venous thromboembolism (VTE) in outpatients suspected of deep venous thrombosis (DVT) and pulmonary embolism (PE). Performed By: #### U A, UAMICAO #### [address] [address] LABORATORYOrdered By: SYSTEM SYSTEM on 11-09-2023 Albumin BCP dye [Mass/Vol] 3.9 G/dL Normal 3.4 - 4.8 G/dL AO ADM SS Albumin/Globulin [Mass ratio] 1.3 {ratio} Normal 1.1 - 2.5 ratio AO ADM SS ALP [Catalytic activity/Vol] 56 U/L Normal 40 - 135 U/L AO ADM SS ALT With P-5'-P [Catalytic activity/Vol] 24 U/L Normal 14 - 59 U/L AO ADM SS AST With P-5'-P [Catalytic activity/Vol] 17 U/L Normal 10 - 40 U/L AO ADM SS Basophil, Absolute 0.0 103/mcL Normal 0.0 - 0.2 10^3/mcL AO Workflow SS Basophils/100 WBC (Bld) 0.2 % Normal 0.0 - 2.5 % AO Workflow SS Bilirubin [Mass/Vol] 1.2 mg/dL High 0.2 - 1 .0 mg/dL AO ADM SS Comment on above: Interpretive Data: U se of this assay is not recommended for patients undergoing treatment with eltrombopag due to the potential for falsely elevated results. Calcium [Mass/Vol] 8.9 mg/dL Normal 8.4 - 10. 2 mg/dL AO ADM SS Chloride [Moles/Vol] 101 mmol/L Normal 98 - 10 7 mmol/L AO ADM SS CO2 [Moles/Vol] 23 mmol/L Normal 23 - 31 mmol/L AO ADM SS Creatinine [Mass/Vol] 0.89 mg/dL Normal 0.55 - 1.02 mg/dL AO ADM SS Electrolyte Balance 13.0 mEq/L Normal 4.0 - 15 .0 mEq/L AO ADM SS Eosinophil, Absolute 0.0 103/mcL Normal 0.0 - 0 .4 10^3/mcL AO Workflow SS Eosinophils/100 WBC (Bld) 0.1 % Normal 0.0 - 7.0 % AO Workflow SS Erythrocyte distribution width (RBC) [Ratio] 12.8 % Normal 11.5 - 14.5 % AO Workflow SS GFR/1.73 sq M.predicted among blacks MDRD (S/P/Bld) [Vol rate/Area] 73 ml/min/1.73sqm Invalid Interpretation Code AO Chemistry S Comment on above: Interpretive Data: GFR Population mean for , Non- Americans Ages 20-29 = 116 mL/min/1.73 sq.m. Ages 30-39 = 107 mL/min/1.73 sq.m. Ages 40-49 = 99 mL/min/1.73 sq.m. Ages 50-59 = 93 mL/min/1.73 sq.m. Ages 60-69 = 85 mL/min/1.73 sq.m. Ages 70+ = 75 mL/min/1.73 sq.m. Chronic Kidney Disease: Less than 60 mL/min/1.73 square meters End Stage Renal Disease: Less than 15 mL/min/1.73 square meters GFR/1.73 sq M.predicted among non-blacks MDRD (S/P/Bld) [Vol rate/Area] 60 ml/min/1.73sqm Invalid Interpretation Code AO Chemistry S Comment on above: Interpretive Data: GFR Population mean for , Non- Americans Ages 20-29 = 116 mL/min/1.73 sq.m. Ages 30-39 = 107 mL/min/1.73 sq.m. Ages 40-49 = 99 mL/min/1.73 sq.m. Ages 50-59 = 93 mL/min/1.73 sq.m. Ages 60-69 = 85 mL/min/1.73 sq.m. Ages 70+ = 75 mL/min/1.73 sq.m. Chronic Kidney Disease: Less than 60 mL/min/1.73 square meters End Stage Renal Disease: Less than 15 mL/min/1.73 square meters Globulin 2.9 G/dL Invalid Interpretation Code AO ADM SS Glucose [Mass/Vol] 147 mg/dL High 83 - 110 mg/dL AO ADM SS Hematocrit (Bld) [Volume fraction] 44.4 % Normal 37.0 - 47.0 % AO Workflow SS Hemoglobin (Bld) [Mass/Vol] 15.1 G/dL Normal 12.0 - 16.0 G/dL AO Workflow SS Lipase [Catalytic activity/Vol] 16 U/L Normal 16 - 77 U/L AO ADM SS Lymphocyte, Absolute 0.5 103/mcL Low 0.8 - 3 .9 10^3/mcL AO Workflow SS Lymphocytes/100 WBC (Bld) 7.7 % Low 10.0 - 50.0 % AO Workflow SS MCH (RBC) [Entitic mass] 33.2 pg High 27.0 - 31.2 pg AO Workflow SS MCHC 33.9 G/dL Normal 33.0 - 37.0 G/dL AO Workflow SS MCV (RBC) [Entitic vol] 97.9 fL High 80.0 - 94.0 fL AO Workflow SS Monocyte distribution width Auto (Bld) [Entitic vol] 29.09 1 High 0.00 - 20.00 AO Workflow SS Comment on above: Result Comment: For adults in ED, MDW>20.0 may be associated with a higher risk of sepsis during the first 12hrs of hospital admission Monocyte, Absolute 0.2 103/mcL Normal 0.2 - 1.0 10^3/mcL AO Workflow SS Monocytes/100 WBC (Bld) 2.8 % Normal 1.7 - 13.0 % AO Workflow SS Neutrophil, Absolute 6.2 103/mcL Normal 2.9 - 6 .2 10^3/mcL AO Workflow SS Neutrophils/100 WBC (Bld) 89.2 % High 37.0 - 80.0 % AO Workflow SS Platelet mean volume (Bld) [Entitic vol] 7.5 fL Normal 7.4 - 10.4 fL AO Workflow SS Platelets (Bld) [#/Vol] 236 103/mcL Normal 130 - 400 10^3/mcL AO Workflow SS Potassium [Moles/Vol] 4.1 mmol/L Normal 3.5 - 5.1 mmol/L AO ADM SS Protein [Mass/Vol] 6.8 G/dL Normal 6.4 - 8.2 G/dL AO ADM SS RBC (Bld) [#/Vol] 4.53 106/mcL Normal 4.20 - 5.4 0 10^6/mcL AO Workflow SS Sodium [Moles/Vol] 137 mmol/L Normal 136 - 145 mmol/L AO ADM SS Troponin I.cardiac DL <= 0.01 ng/mL [Mass/Vol] 6.5 ng/L Normal 0.0 - 51.4 ng/L AO ADM SS Urea nitrogen [Mass/Vol] 15 mg/dL Normal 7 - 18 mg/dL AO ADM SS Urea nitrogen/Creatinine [Mass ratio] 17 ratio Normal 7 - 27 ratio AO ADM SS WBC (Bld) [#/Vol] 7.0 103/mcL Normal 4.6 - 10.8 10^3/mcL AO Workflow SS LABORATORYOrdered By: Peg Rudd on 11-09-2023 Appearance (U) Clear (11/09/23 7:10 PM) Normal Clear AO Auto Urine SS Bacteria LM.HPF (Urine sed) [#/Area] 1 /[HPF] Invalid Interpretation Code AO Auto Urine SS Bilirubin Ql (U) Negative (11/09/23 7:10 PM) Normal Negative AO Auto Urine SS Color (U) Yellow (11/09/23 7:10 PM) Normal AO Auto Urine SS Fibrin D-dimer DDU (PPP) [Mass/Vol] ng/mL D-DU Normal 0 - 230 ng/mL D-DU AO [facility] SS Comment on above: Result Comment: DDN: Results reported in D-DU ng/mL. Negative for D-dimer. DVT/PE is highly unlikely. Note: False negative results may be seen in patients on anticoagulant therapy. Interpretive Data: T he result of the D-Dimer test should be evaluated in the context of all the clinical and laboratory data available. In those instances where the laboratory result does not agree with the clinical evaluation, additional tests should be performed accordingly. If the D-Dimer result is used to exclude DVT or PE, the recommended cutoff value is less than 230 ng/mL. The D-Dimer result should not be used alone to rule in DVT/PE, but should be used in conjunction with a clinical pretest probability (PTP)assessment model to exclude venous thromboembolism (VTE) in outpatients suspected of deep venous thrombosis (DVT) and pulmonary embolism (PE). Glucose Test strip (U) [Mass/Vol] Negative Normal Negative AO Auto Urine SS Hemoglobin Auto test strip (U) [Mass/Vol] Negative (11/09/23 7:10 PM) Normal Negative AO Auto Urine SS Ketones Ql (U) 15 mg/dL Invalid Interpretation Code Negative AO Auto Urine SS UA Leuk Est Negative (11/09/23 7:10 PM) Normal Negative AO Auto Urine SS UA Mucous 1+ /HPF Normal AO Auto Urine SS UA Nitrite Negative (11/09/23 7:10 PM) Normal Negative AO Auto Urine SS UA pH 5.5 (11/09/23 7:10 PM) Normal 5.0 - 8.0 AO Auto Urine SS UA Protein Negative Normal Negative AO Auto Urine SS UA RBC 0-5 /HPF Invalid Interpretation Code None Seen AO Auto Urine SS UA Spec Grav 1.025 (11/09/23 7:10 PM) Normal 1.015-1.025 AO Auto Urine SS UA Specimen Type Void (11/09/23 7:10 PM) Normal AO Auto Urine SS UA Squam Epithelial 5-10 /HPF Invalid Interpretation Code None Seen AO Auto Urine SS UA Urobilinogen 0.2 E.U./dL Normal 0.2-1.0 AO Auto Urine SS WBC LM.HPF (Urine sed) [#/Area] 0-5 /HPF Invalid Interpretation Code None Seen AO Auto Urine SS LIPon 11-09-2023 Lipase Level 16 U/L Normal 16-77 [facility] ([place]) Comment on above: Performed By: #### U A, UAMICAO #### [address] [address] TROPHSon 11-09-2023 Troponin I High Sensitivity 6.5 ng/L Normal 0.0-51.4 [facility] ([place]) Comment on above: Performed By: #### U A, UAMICAO #### [address] [address] UAon 11-09-2023 Color (U) Yellow Normal [facility] ([place]) Comment on above: Performed By: #### U A, UAMICAO #### [address] [address] Glucose (U) [Mass/Vol] Negative Normal Negative [facility] ([place]) Comment on above: Performed By: #### U A, UAMICAO #### [address] [address] Ketones Ql (U) 15 mg/dL Abnormal Negative [facility] ([place]) Comment on above: Performed By: #### U A, UAMICAO #### [address] [address] UA Appear Clear Normal Clear [facility] ([place]) Comment on above: Performed By: #### U A, UAMICAO #### [address] [address] UA Blood Negative Normal Negative [facility] ([place]) Comment on above: Performed By: #### U A, UAMICAO #### [address] [address] UA Leuk Est Negative Normal Negative [facility] ([place]) Comment on above: Performed By: #### U A, UAMICAO #### [address] [address] UA Nitrite Negative Normal Negative [facility] ([place]) Comment on above: Performed By: #### U A, UAMICAO #### [address] [address] UA pH 5.5 Normal 5.0 - 8.0 [facility] ([place]) Comment on above: Performed By: #### U A, UAMICAO #### [address] [address] UA Protein Negative Normal Negative [facility] ([place]) Comment on above: Performed By: #### U A, UAMICAO #### [address] [address] UA Spec Grav 1.025 Normal 1.015-1.025 [facility] ([place]) Comment on above: Performed By: #### U A UAMICAO #### [address] [address] UA Specimen Type Void Normal [facility] ([place]) Comment on above: Performed By: #### U A UAMICAO #### [address] [address] UA Urobilinogen 0.2 E.U./dL Normal 0.2-1.0 [facility] ([place]) Comment on above: Performed By: #### U A UAMICAO #### [address] [address] Urobilinogen (U) [Mass/Vol] Negative Normal Negative [facility] ([place] Comment on above: Performed By: #### U A UAMICAO #### [place] [id number] XR CHEST 2 VIEWSon 3 XR CHEST 2 VIEWS ORIGINAL EXAMINATION: TWO XRAY VIEWS OF THE CHEST 11/09/2023 7:54 pm COMPARISON: None. HISTORY: ORDERING SYSTEM PROVIDED HISTORY: Reason for Exam: Abdominal pain FINDINGS: Normal cardiomediastinal silhouette. Atherosclerotic aorta. No vascular congestion, focal consolidation, large pleural effusion, or visible pneumothorax. Biapical pleural scarring. Minimal linear airspace disease in left costophrenic angle favoring atelectasis or scarring. Degenerative changes of the spine and left shoulder. Right hemidiaphragm eventration. Right shoulder prosthesis. Right upper quadrant surgical clips. IMPRESSION: No acute radiographic abnormality. I have personally reviewed the images of this examination and agree with the resident's findings and interpretation. Interpreted by: Diandra Agrawal MD Preliminary Report By: Chato Laws Electronically signed By Diandra Agrawal MD Dictated Date: 11/09/2023 8:00:19 PM Prelim Date: 11/09/2023 8:02:13 PM Sign Date: 11/09/2023 8:17:05 PM Ordering Provider: HANY REED [facility] ([place]) LABORATORYOrdered By: SYSTEM SYSTEM on 02-04-2023 Albumin BCP dye [Mass/Vol] 4.1 G/dL Invalid Interpretation Code 3.4 - 4.8 G/dL AO ADM SS Albumin/Globulin [Mass ratio] 1.7 {ratio} Invalid Interpretation Code 1.1 - 2.5 ratio AO ADM SS ALP [Catalytic activity/Vol] 61 U/L Invalid Interpretation Code 40 - 135 U/L AO ADM SS ALT With P-5'-P [Catalytic activity/Vol] 26 U/L Invalid Interpretation Code 14 - 59 U/L AO ADM SS AST With P-5'-P [Catalytic activity/Vol] 17 U/L Invalid Interpretation Code 10 - 40 U/L AO ADM SS Bilirubin [Mass/Vol] 1.2 mg/dL Invalid Interpretation Code 0.2 - 1.0 mg/dL AO ADM SS Calcium [Mass/Vol] 9.8 mg/dL Invalid Interpretation Code 8.4 - 10.2 mg/dL AO ADM SS Chloride [Moles/Vol] 103 mmol/L Invalid Interpretation Code 98 - 107 mmol/L AO ADM SS CO2 [Moles/Vol] 29 mmol/L Invalid Interpretation Code 23 - 31 mmol/L AO ADM SS Creatinine [Mass/Vol] 0.86 mg/dL Invalid Interpretation Code 0.55 - 1.02 mg/dL AO ADM SS Electrolyte Balance 9.0 mEq/L Invalid Interpretation Code 4.0 - 15.0 mEq/L AO ADM SS Free T4 [Mass/Vol] 0.99 ng/dL Invalid Interpretation Code 0.76 - 1.46 ng/dL AO ADM SS GFR 76 ml/min/1.73sqm Invalid Interpretation Code AO Chemistry S GFR Non- 63 ml/min/1.73sqm Invalid Interpretation Code AO Chemistry S Globulin 2.4 G/dL Invalid Interpretation Code AO ADM SS Glucose [Mass/Vol] 150 mg/dL Invalid Interpretation Code 83 - 110 mg/dL AO ADM SS HbA1c (Bld) [Mass fraction] 5.9 % Invalid Interpretation Code 4.3 - 6.4 % AO ADM SS Potassium [Moles/Vol] 4.3 mmol/L Invalid Interpretation Code 3.5 - 5.1 mmol/L AO ADM SS Protein [Mass/Vol] 6.5 G/dL Invalid Interpretation Code 6.4 - 8.2 G/dL AO ADM SS Sodium [Moles/Vol] 141 mmol/L Invalid Interpretation Code 136 - 145 mmol/L AO ADM SS TSH Qn 1.88 m[IU]/L Invalid Interpretation Code 0.36 - 3.74 mcIU/mL AO ADM SS Urea nitrogen [Mass/Vol] 18 mg/dL Invalid Interpretation Code 7 - 18 mg/dL AO ADM SS Urea nitrogen/Creatinine [Mass ratio] 21 ratio Invalid Interpretation Code 7 - 27 ratio AO ADM SS Vit. D 25-Hydroxy 48.0 ng/mL Invalid Interpretation Code AO ADM SS LABORATORYOrdered By: Ida Wright on 02-04-2023 Basophil, Absolute 0.0 103/mcL Invalid Interpretation Code 0.0 - 0.2 10^3/mcL AO Workflow SS Basophils/100 WBC (Bld) 0.6 % Invalid Interpretation Code 0.0 - 2.5 % AO Workflow SS Eosinophil, Absolute 0.1 103/mcL Invalid Interpretation Code 0.0 - 0.4 10^3/mcL AO Workflow SS Eosinophils/100 WBC (Bld) 1.2 % Invalid Interpretation Code 0.0 - 7.0 % AO Workflow SS Erythrocyte distribution width (RBC) [Ratio] 13.1 % Invalid Interpretation Code 11.5 - 14.5 % AO Workflow SS Hematocrit (Bld) [Volume fraction] 41.3 % Invalid Interpretation Code 37.0 - 47.0 % AO Workflow SS Hemoglobin (Bld) [Mass/Vol] 14.1 G/dL Invalid Interpretation Code 12.0 - 16.0 G/dL AO Workflow SS Lymphocyte, Absolute 2.5 103/mcL Invalid Interpretation Code 0.8 - 3.9 10^3/mcL AO Workflow SS Lymphocytes/100 WBC (Bld) 35.0 % Invalid Interpretation Code 10.0 - 50.0 % AO Workflow SS MCH (RBC) [Entitic mass] 33.2 pg Invalid Interpretation Code 27.0 - 31.2 pg AO Workflow SS MCHC 34.1 G/dL Invalid Interpretation Code 33.0 - 37.0 G/dL AO Workflow SS MCV (RBC) [Entitic vol] 97.6 fL Invalid Interpretation Code 80.0 - 94.0 fL AO Workflow SS Monocyte, Absolute 0.3 103/mcL Invalid Interpretation Code 0.2 - 1.0 10^3/mcL AO Workflow SS Monocytes/100 WBC (Bld) 4.0 % Invalid Interpretation Code 1.7 - 13.0 % AO Workflow SS Neutrophil, Absolute 4.3 103/mcL Invalid Interpretation Code 2.9 - 6.2 10^3/mcL AO Workflow SS Neutrophils/100 WBC (Bld) 59.2 % Invalid Interpretation Code 37.0 - 80.0 % AO Workflow SS Platelet mean volume (Bld) [Entitic vol] 8.0 fL Invalid Interpretation Code 7.4 - 10.4 fL AO Workflow SS Platelets (Bld) [#/Vol] 265 103/mcL Invalid Interpretation Code 130 - 400 10^3/mcL AO Workflow SS RBC (Bld) [#/Vol] 4.23 106/mcL Invalid Interpretation Code 4.20 - 5.40 10^6/mcL AO Workflow SS WBC (Bld) [#/Vol] 7.2 103/mcL Invalid Interpretation Code 4.6 - 10.8 10^3/mcL AO Workflow SS LABORATORYOrdered By: Lyssa Gary on 02-04-2023 Cholesterol [Mass/Vol] 207 mg/dL Invalid Interpretation Code 0 - 200 mg/dL AO ADM SS Cholesterol in HDL [Mass/Vol] 60 mg/dL Invalid Interpretation Code 40 - 60 mg/dL AO ADM SS Cholesterol in LDL [Mass/Vol] 90 mg/dL Invalid Interpretation Code 0 - 130 mg/dL AO ADM SS Triglyceride [Mass/Vol] 285 mg/dL Invalid Interpretation Code 0 - 150 mg/dL AO ADM SS LABORATORYOrdered By: Manolo oBucher on 12-14-2021 Albumin BCP dye [Mass/Vol] 4.3 G/dL Invalid Interpretation Code 3.4 - 4.8 G/dL AO ADM SS Albumin/Globulin [Mass ratio] 1.7 {ratio} Invalid Interpretation Code 1.1 - 2.5 ratio AO ADM SS ALP [Catalytic activity/Vol] 56 U/L Invalid Interpretation Code 40 - 135 U/L AO ADM SS ALT With P-5'-P [Catalytic activity/Vol] 22 U/L Invalid Interpretation Code 14 - 59 U/L AO ADM SS AST With P-5'-P [Catalytic activity/Vol] 17 U/L Invalid Interpretation Code 10 - 40 U/L AO ADM SS Bilirubin [Mass/Vol] 1.2 mg/dL Invalid Interpretation Code 0.2 - 1.0 mg/dL AO ADM SS Calcium [Mass/Vol] 9.9 mg/dL Invalid Interpretation Code 8.4 - 10.2 mg/dL AO ADM SS Chloride [Moles/Vol] 103 mmol/L Invalid Interpretation Code 98 - 107 mmol/L AO ADM SS Cholesterol [Mass/Vol] 184 mg/dL Invalid Interpretation Code 0 - 200 mg/dL AO ADM SS Cholesterol in HDL [Mass/Vol] 61 mg/dL Invalid Interpretation Code 40 - 60 mg/dL AO ADM SS Cholesterol in LDL [Mass/Vol] 96 mg/dL Invalid Interpretation Code 0 - 130 mg/dL AO ADM SS CO2 [Moles/Vol] 27 mmol/L Invalid Interpretation Code 23 - 31 mmol/L AO ADM SS Creatinine [Mass/Vol] 0.89 mg/dL Invalid Interpretation Code 0.55 - 1.02 mg/dL AO ADM SS Electrolyte Balance 11.0 mEq/L Invalid Interpretation Code 4.0 - 15.0 mEq/L AO ADM SS Globulin 2.6 G/dL Invalid Interpretation Code AO ADM SS Glucose [Mass/Vol] 122 mg/dL Invalid Interpretation Code 83 - 110 mg/dL AO ADM SS Potassium [Moles/Vol] 4.1 mmol/L Invalid Interpretation Code 3.5 - 5.1 mmol/L AO ADM SS Protein [Mass/Vol] 6.9 G/dL Invalid Interpretation Code 6.4 - 8.2 G/dL AO ADM SS Sodium [Moles/Vol] 141 mmol/L Invalid Interpretation Code 136 - 145 mmol/L AO ADM SS Triglyceride [Mass/Vol] 133 mg/dL Invalid Interpretation Code 0 - 150 mg/dL AO ADM SS TSH Qn 2.63 m[IU]/L Invalid Interpretation Code 0.36 - 3.74 mcIU/mL AO ADM SS Urea nitrogen [Mass/Vol] 17 mg/dL Invalid Interpretation Code 7 - 18 mg/dL AO ADM SS Urea nitrogen/Creatinine [Mass ratio] 19 ratio Invalid Interpretation Code 7 - 27 ratio AO ADM SS LABORATORYOrdered By: Dee Dewitt on 12-14-2021 Basophil, Absolute 0.00 103/mcL Invalid Interpretation Code 0.00 - 0.19 10^3/mcL AO Auto Heme SS Basophils/100 WBC (Bld) 0.7 % Invalid Interpretation Code 0.0 - 2.5 % AO Auto Heme SS Eosinophil, Absolute 0.10 103/mcL Invalid Interpretation Code 0.00 - 0.40 10^3/mcL AO Auto Heme SS Eosinophils/100 WBC (Bld) 2.0 % Invalid Interpretation Code 0.0 - 7.0 % AO Auto Heme SS Erythrocyte distribution width (RBC) [Ratio] 12.8 % Invalid Interpretation Code 11.5 - 14.5 % AO Auto Heme SS Hematocrit (Bld) [Volume fraction] 41.2 % Invalid Interpretation Code 37.0 - 47.0 % AO Auto Heme SS Hemoglobin (Bld) [Mass/Vol] 14.0 G/dL Invalid Interpretation Code 12.0 - 16.0 G/dL AO Auto Heme SS Lymphocyte, Absolute 2.20 103/mcL Invalid Interpretation Code 0.77 - 3.85 10^3/mcL AO Auto Heme SS Lymphocytes/100 WBC (Bld) 36.9 % Invalid Interpretation Code 10.0 - 50.0 % AO Auto Heme SS MCH (RBC) [Entitic mass] 32.8 pg Invalid Interpretation Code 27.0 - 31.2 pg AO Auto Heme SS MCHC (RBC) [Mass/Vol] 33.9 G/dL Invalid Interpretation Code 33.0 - 37.0 G/dL AO Auto Heme SS MCV (RBC) [Entitic vol] 96.7 fL Invalid Interpretation Code 80.0 - 94.0 fL AO Auto Heme SS Monocyte, Absolute 0.40 103/mcL Invalid Interpretation Code 0.15 - 1.00 10^3/mcL AO Auto Heme SS Monocytes/100 WBC (Bld) 7.3 % Invalid Interpretation Code 1.7 - 13.0 % AO Auto Heme SS Neutrophil, Absolute 3.20 103/mcL Invalid Interpretation Code 2.85 - 6.16 10^3/mcL AO Auto Heme SS Neutrophils/100 WBC (Bld) 53.1 % Invalid Interpretation Code 37.0 - 80.0 % AO Auto Heme SS Platelet mean volume (Bld) [Entitic vol] 8.1 fL Invalid Interpretation Code 7.4 - 10.4 fL AO Auto Heme SS Platelets (Bld) [#/Vol] 249 103/mcL Invalid Interpretation Code 130 - 400 10^3/mcL AO Auto Heme SS RBC (Bld) [#/Vol] 4.26 106/mcL Invalid Interpretation Code 4.20 - 5.40 10^6/mcL AO Auto Heme SS WBC (Bld) [#/Vol] 5.90 103/mcL Invalid Interpretation Code 4.60 - 10.80 10^3/mcL AO Auto Heme SS LABORATORYOrdered By: SYSTEM SYSTEM on 12-14-2021 GFR 73 ml/min/1.73sqm Invalid Interpretation Code AO Chemistry S GFR Non- 61 ml/min/1.73sqm Invalid Interpretation Code AO Chemistry S Vital Signs Date Time Vital Sign Value Performing Clinician Windy german 03-24-2025 13:06-0400 Body temperature 98.06 [degF] LUIS [employer] DO [facility] 03-24-2025 13:06-0400 Diastolic Blood Pressure Non-Invasive 79 mm[Hg] [employer] DO [facility] 03-24-2025 13:06-0400 Heart rate 83 /min [employer] DO [facility] 03-24-2025 13:06-0400 Respiratory rate 18 /min [employer] DO [facility] 03-24-2025 13:06-0400 Systolic Blood Pressure Non-Invasive 145 mm[Hg] [employer] DO [facility] 09-22-2024 13:23-0400 Diastolic Blood Pressure Non-Invasive 79 mm[Hg] [employer] DO [facility] 09-22-2024 13:23-0400 Systolic Blood Pressure Non-Invasive 155 mm[Hg] [employer] DO [facility] 09-22-2024 13:21-0400 Body temperature 98.06 [degF] LUIS SHETTY DO [facility] 09-22-2024 13:21-0400 Diastolic Blood Pressure Non-Invasive 74 mm[Hg] LUIS SHETTY DO [facility] 09-22-2024 13:21-0400 Heart rate 86 /min LUIS SHETTY DO [facility] 09-22-2024 13:21-0400 Reason For Taking VItal Signs LUIS SHETTY DO [facility] 09-22-2024 13:21-0400 Respiratory rate 16 /min LUIS SHETTY DO [facility] 09-22-2024 13:21-0400 Systolic Blood Pressure Non-Invasive 171 mm[Hg] LUIS SHETTY DO [facility] 07-13-2024 15:33-0400 Blood Pressure Location NEMESIO GUNTER MD [facility] 07-13-2024 15:33-0400 Blood Pressure Method NEMESIO GUNTER MD [facility] 07-13-2024 15:33-0400 Diastolic Blood Pressure Non-Invasive 86 mm[Hg] NEMESIO GUNTER MD [facility] 07-13-2024 15:33-0400 Heart rate 94 /min NEMESIO GUNTER MD [facility] 07-13-2024 15:33-0400 Respiratory rate 18 /min NEMESIO GUNTER MD [facility] 07-13-2024 15:33-0400 Systolic Blood Pressure Non-Invasive 147 mm[Hg] NEMESIO GUNTER MD [facility] 07-13-2024 14:39-0400 Blood Pressure Location NEMESIO GUNTER MD [facility] 07-13-2024 14:39-0400 Blood Pressure Method NEMESIO GUNTER MD [facility] 07-13-2024 14:39-0400 Diastolic Blood Pressure Non-Invasive 92 mm[Hg] NEMESIO GUNTER MD [facility] 07-13-2024 14:39-0400 Heart rate 99 /min NEMESIO GUNTER MD [facility] 07-13-2024 14:39-0400 Respiratory rate 18 /min NEMESIO GUNTER MD [facility] 07-13-2024 14:39-0400 Systolic Blood Pressure Non-Invasive 158 mm[Hg] NEMESIO GUNTER MD [facility] 07-13-2024 13:46-0400 Blood Pressure Location NEMESIO GUNTER MD [facility] 07-13-2024 13:46-0400 Blood Pressure Method NEMESIO GUNTER MD [facility] 07-13-2024 13:46-0400 Body temperature 98.24 [degF] NEMESIO GUNTER MD [facility] 07-13-2024 13:46-0400 Body weight 73.2 kg NEMESIO GUNTER MD [facility] 07-13-2024 13:46-0400 Diastolic Blood Pressure Non-Invasive 97 mm[Hg] NEMESIO GUNTER MD [facility] 07-13-2024 13:46-0400 Heart rate 118 /min NEMESIO GUNTER MD [facility] 07-13-2024 13:46-0400 Respiratory rate 20 /min NEMESIO GUNTER MD [facility] 07-13-2024 13:46-0400 Systolic Blood Pressure Non-Invasive 162 mm[Hg] NEMESIO GUNTER MD [facility] 03-12-2024 11:12-0400 Body temperature 97.88 [degF] LUIS SHEARERINS DO [facility] 03-12-2024 11:12-0400 Diastolic Blood Pressure Non-Invasive 80 mm[Hg] LUIS SHETTY DO [facility] 03-12-2024 11:12-0400 Heart rate 85 /min LUIS SHETTY DO [facility] 03-12-2024 11:12-0400 Respiratory rate 18 /min LUIS SHETTY DO [facility] 03-12-2024 11:12-0400 Systolic Blood Pressure Non-Invasive 166 mm[Hg] LUIS SHETTY DO [facility] 11-09-2023 21:31-0500 Diastolic Blood Pressure Non-Invasive 86 mm[Hg] DR MAYRA HENRY DO [facility] 11-09-2023 21:31-0500 Heart rate 90 /min DR MAYRA HENRY DO [facility] 11-09-2023 21:31-0500 Respiratory rate 16 /min DR MAYRA HENRY DO [facility] 11-09-2023 21:31-0500 Systolic Blood Pressure Non-Invasive 136 mm[Hg] DR MAYRA HENRY DO [facility] 11-09-2023 17:36-0500 Body temperature 97.7 [degF] DR MAYRA HENRY DO [facility] 11-09-2023 17:36-0500 Diastolic Blood Pressure Non-Invasive 79 mm[Hg] DR MAYRA HENRY DO [facility] 11-09-2023 17:36-0500 Heart rate 118 /min DR MAYRA HENRY DO [facility] 11-09-2023 17:36-0500 Respiratory rate 14 /min DR MAYRA HENRY DO [facility] 11-09-2023 17:36-0500 Systolic Blood Pressure Non-Invasive 153 mm[Hg] DR MAYRA HENRY DO [facility] 09-10-2023 11:38-0400 Blood Pressure Method LUIS SHETTY DO [facility] 09-10-2023 11:38-0400 Body temperature 98.06 [degF] LUIS SHETTY DO [facility] 09-10-2023 11:38-0400 Diastolic Blood Pressure Non-Invasive 78 1 LUIS SHEARERINS DO [facility] 09-10-2023 11:38-0400 Heart rate 85 /min LUIS SHEARERINS DO [facility] 09-10-2023 11:38-0400 Respiratory rate 16 /min LUIS SHEARERINS DO [facility] 09-10-2023 [id number] Systolic Blood Pressure Non-Invasive 172 1 LUIS SHETTY DO [facility] Encounters Encounter Date Encounter Type Care Provider Facility Start: 05-06-2025 ambulatory LUIS SHETTY DO Faci lity:[facility] Start: 05-02-2025 End: 05-02-2025 ambulatory LUIS SHEARERINS DO Facility:[facility] Start: 05-02-2025 End: 05-02-2025 Patient encounter procedure LUIS Raghavendra SHETTY DO [facility] Start: 04-08-2025 End: 04-12-2025 ambulatory LUIS SHETTY DO Facility:[facility] Start: 04-08-2025 End: 04-12-2025 Encounter for general adult medical examination without abnormal findings LUIS SHETTY DO Facility:[facility] Start: 04-08-2025 End: 04-12-2025 Outreach Lab LUIS SHETTY DO [facility] Start: 03-24-2025 End: 03-24-2025 ambulatory LUIS Raghavendra SHEARERSHETTY DO Facility:[facility] Start: 03-24-2025 End: 03-24-2025 SAME DAY STAY LUIS Raghavendra SHETTY DO [facility] Start: 03-04-2025 End: 03-04-2025 ambulatory [facility] Start: 09-22-2024 End: 09-22-2024 ambulatory LUIS Raghavendra SHEARERSHETTY DO Facility:[facility] Start: 09-22-2024 End: 09-22-2024 SAME DAY STAY LUIS Raghavendra SHEARERSHETTY DO [facility] Start: 09-14-2024 End: 09-14-2024 ambulatory LUIS Raghavendra SHEARERSHETTY DO Facility:[facility] Start: 09-14-2024 End: 09-14-2024 Patient encounter procedure LUIS Raghavendra SHEARERSHETTY DO [facility] Start: 07-21-2024 End: 07-21-2024 Patient encounter procedure Hearing Aid [facility] Work Phone: [facility] (ENT) Comment on above: Sensorineural hearin g loss (SNHL) of both ears (Primary Dx) Start: 07-21-2024 End: 07-21-2024 ambulatory LUIS SHETTY Facility:[facility] Start: 07-13-2024 End: 07-13-2024 Emergency department patient visit NEMESIO GUNTER MD [facility] Start: 06-24-2024 End: 06-24-2024 Patient encounter procedure Hearing Aid [employer] [employer] [place] Work Phone: [facility] (ENT) Comment on above: Sensorineural hearin g loss (SNHL) of both ears (Primary Dx) Start: 06-24-2024 End: 06-24-2024 ambulatory LUIS SHETTY Facility:[facility] Start: 06-14-2024 End: 06-14-2024 ambulatory LUIS SHETTY DO Facility: Start: 06-14-2024 End: 06-14-2024 Patient encounter procedure LUIS SHETTY DO [facility] Start: 06-14-2024 End: 06-14-2024 Well adult monitoring check done LUIS SHETTY DO [facility] Start: 06-11-2024 End: 06-11-2024 Patient encounter procedure Hearing Aid [facility] [employer] [place] Work Phone: [facility] (ENT) Comment on above: Sensorineural hearin g loss (SNHL) of both ears (Primary Dx) Start: 06-11-2024 End: 06-11-2024 ambulatory LUIS SHETTY Facility:[facility] Start: 04-07-2024 End: 04-07-2024 ambulatory LUIS E SHETTY DO Facility:[facility] Start: 03-30-2024 Telephone encounter Jamar peterson MD Work Phone: [facility] Comment on above: Advice Only Start: 03-23-2024 End: 03-23-2024 ambulatory LUIS E SHETTY DO Facility:[facility] Start: 03-12-2024 End: 03-12-2024 ambulatory LUIS E SHETTY DO Facility:[facility] Start: 03-12-2024 End: 03-12-2024 SAME DAY STAY LUIS Raghavendra SHETTY DO [facility] Start: 11-09-2023 End: 11-09-2023 Emergency department patient visit DR MAYRA HENRY DO [facility] Start: 09-10-2023 End: 09-10-2023 ambulatory LUIS E SHETTY DO Facility:[facility] Start: 09-10-2023 End: 09-10-2023 SAME DAY STAY LUIS Raghavendra SHETTY DO [facility] Start: 02-04-2023 End: 02-04-2023 Patient encounter procedure LUIS Raghavendra SHEARERSHETTY DO [facility] Start: 12-14-2021 End: 12-14-2021 Patient encounter procedure ERIK WILDE MD [facility] Procedures Date Procedure Procedure Detail Performing Clinician Start: 06-11-2024 HEARING TEST/AUDIOGRAM Hiren KWAN Work Phone: Cholecystectomy ERIK ROQUE MD Plan of Treatment Date Care Activity Detail Author Start: 06-20-2030 Urine microalbumin profile DTaP,Tdap,Td Vaccine (2 - Td or Tdap) [facility] Start: 01-21-2025 End: 01-21-2025 Patient encounter procedure 01/21/2025 1:30 PM EST [facility] [address] [place] [phone] Hiren Starks, AUD [address] [place] [address] hearing aid f/u [facility] (ENT) Comment on above: hearing aid f/u Start: 08-01-2024 Influenza vaccination Influenza Vacc ine (#1) [facility] Start: 07-21-2024 End: 07-21-2024 Patient encounter procedure 07/21/2024 1:00 PM EDT Office Visit [facility] (ENT) [address] [place] [phone] HEARING AID F/U [facility] (ENT) Comment on above: HEARING AID F/U Start: 06-24-2024 End: 06-24-2024 Patient encounter procedure 06/24/2024 10:00 AM EDT Office Visit [facility] (ENT) [address] [place] [phone] HEARING AID F/U [facility] (ENT) Comment on above: HEARING AID F/U Start: 01-04-2024 Covid-19 Vaccine ( season) Covid-19 Vaccine ( season) [facility] Start: 12-01-2023 Advance Directive Discussion Advance Directive Discussion [facility] Start: 12-01-2023 Behavioral Health Screening Behavioral Health Screening [facility] Start: 2003 Screening for osteoporosis Bone Density Screening [facility] Start: 1983 Diabetes Screening Diabetes Screenin g [facility] Start: 1956 Anxiety Screening Anxiety Screening [facility] Start: 1956 Depression Screening Depression Scre ening [facility] Immunizations Immunization Date Immunization Notes Care Provider Fa cili 09-07-2024 influenza virus vacc ine, unspecified formulation LUIS SHETTY DO [facility] 09-07-2024 SARS-CoV-2 (COVID-19 ) [id number] LUIS SHETTY DO [facility] 10-17-2023 RSV vaccine preF3, recombinant DR MAYRA HENRY DO [facility] 09-17-2023 influenza virus vacc ine, unspecified formulation DR MAYRA HENRY DO [facility] 09-03-2023 SARS-CoV-2 (COVID-19 ) [id number] DR MAYRA HENRY DO [facility] 03-24-2023 pneumococcal 20-stanley nt conjugate vaccine DR MAYRA HENRY DO [facility] 09-03-2022 influenza, high dose seasonal, preservative-free LUIS SHETTY DO [facility] 08-19-2022 COVID-19, mRNA, LNP- S, bivalent booster, PF, 30 mcg/0.3 mL dose; Translations: [Pfizer-BioNTech COVID-19 (12y+) Bivalent Booster Vaccine PF] LUIS SHETTY DO [facility] Comment on above: Early/Late Reason: E tawanda/Late Reason: Other: 08-19-2022 SARSCoV2 mRNA([id number]+)biv al vac 1; Translations: [Pfizer-BioNTech COVID-19 (12y+) Bivalent Booster Vaccine PF] LUIS SHETTY DO [facility] Comment on above: Early/Late Reason: E tawanda/Late Reason: Other: 03-25-2022 SARS-CoV-2 (COVID-19 ) mRNA-1273 vaccine LUIS SHETTY DO [facility] 09-25-2021 SARS-CoV-2 (COVID-19 ) mRNA-1273 vaccine ERIK WILDE MD [facility] 09-18-2021 influenza virus vacc ine, unspecified formulation ERIK WILDE MD [facility] 01-18-2021 SARS-CoV-2 (COVID-19 ) mRNA-1273 vaccine ERIK WILDE MD [facility] 12-21-2020 SARS-CoV-2 (COVID-19 ) mRNA-1273 vaccine ERIK WILDE MD [facility] Comment on above: Result Comment: 2020: [id number] 09-29-2020 zoster vaccine recombinant ERIK WILDE MD [facility] Comment on above: Result Comment: [facility] 08-14-2020 influenza, injectabl e, quadrivalent, preservative free; Translations: [Fluarix PF Quadrivalent ] ERIK WILDE MD [facility] 06-20-2020 pneumococcal polysaccharide vaccine, 23 valent ERIK WILDE MD [facility] 06-20-2020 tetanus toxoid, redu canelo diphtheria toxoid, and acellular pertussis vaccine, adsorbed ERIK WILDE MD [facility] 06-20-2020 zoster vaccine recombinant ERIK WILDE MD [facility] 09-16-2019 influenza, injectabl e, quadrivalent, preservative free; Translations: [Fluarix PF Quadrivalent ] ERIK WILDE MD [facility] 08-21-2018 influenza virus vacc ine, unspecified formulation ERIK WILDE MD [facility] 10-06-2017 influenza virus vacc ine, unspecified formulation ERIK WILDE MD [facility] 02-12-2017 pneumococcal conjuga te vaccine, 13 valent ERIK WILDE MD [facility] 10-31-2016 influenza virus vacc ine, unspecified formulation ERIK WILDE MD [facility] 08-01-2015 influenza virus vacc ine, unspecified formulation ERIK WILDE MD [facility] 08-24-2014 influenza virus vacc ine, unspecified formulation ERIK WILDE MD [facility] 08-16-2013 influenza virus vacc ine, unspecified formulation ERIK WILDE MD [facility] Payers Date Payer Category Payer Private Health Insurance [id number] 2024 Unknown [id number] 2023 Medicare [employer] [place] [id number] 2023-Present [phone] [address] [place] [address] HMO [id number] 2023 Medicare [id number] 1938 Unknown [id number] [id number]. 2. 1938 Unknown [id number] 2.16.840.1.735936.3.579. 2. 1938 Unknown [id number] 2.16.840.1.328367.3.579. 2. 1938 Unknown [id number] 2.16.840.1.691402.3.579. 2. 1938 Unknown [id number] 2.16.840.1.432817.3.579. 2. 1938 Unknown [id number] 2.16.840.1.941565.3.579. 2. 1938 Unknown [id number] 2.16.840.1.484453.3.579. 2. 1938 Unknown [id number] 2.16.840.1.107049.3.579. 2. 1938 Unknown [id number] 2.16.840.1.546650.3.579. 2.62 1938 Unknown [id number] 2.16.840.1.515135.3.579. 2.62 1938 Unknown [id number] 2.16.840.1.176767.3.579. 2.627 1938 Unknown [id number] 2.16.840.1.596482.3.579. 2.627 1938 Unknown [id number] 2.16.840.1.884651.3.579. 2.627 1938 Unknown [id number] 2.16.840.1.426089.3.579. 2.1244 Social History Date Type Detail Facility Start: 08-14-2020 Ex-smoker (finding) [facility] Sex Assigned At Female [facility] Tobacco smoking stat [facility] Tobacco smoking consumption unknown [facility] Start: 1940 Sex Assigned At Not on file [facility] Start: 06-11-2024 Gender identity Not on file [facility] Start: 06-11-2024 History of Social function [facility] National Score (1-10 0), lower number is lower risk 60 [facility] Sexual Orientation [facility] Start: 05-26-2019 Sex Female (finding) [facility] Functional Status Date Assessment Result Facility 07-13-2024 Functional Status Independent [facility] 07-13-2024 Functional Status ID band on, Allergy Band on, Call device within reach, Bed in low position, Wheels locked, Upper/Half-Length side-rails up [facility] 11-09-2023 Functional Status Independent [facility] 11-09-2023 Functional Status Repositions self [facility] Mental Status Date Assessment Result Facility 07-13-2024 Mental Status Orientation Oriented x 4 [facility] [place] [facility] 07-13-2024 Mental Status [facility] 11-09-2023 Mental Status Orientation Oriented x 4 [facility] 12-10-2023 Mental Status [facility] Clinical Notes 11-09-2023 to 05-02-2025 Note Date & Type Note Facility 05-02-2025 Note Exam Date Time Procedure Performing Provider Status 05/02/25 11:29 AM XR Humerus Minimum 2 Views Right REI NELSON MD; Auth (Verified) [id number] ORIGINAL EXAMINATION: TWO XRAY VIEWS OF THE RIGHT HUMERUS05/02/2025 11:29 am COMPARISON: None HISTORY: ORDERING SYSTEM PROVIDED HISTORY: Reason for Exam: Arm pain, greater than 5 weeks from Prolia evaluate bone health, assure no fracture FINDINGS: A reverse right shoulder arthroplasty noted. There is concern for a nondisplaced fracture around the humeral stem of the prosthesis. The elbow is not evaluated in detail. IMPRESSION: Suspected nondisplaced periprosthetic fracture around the humeral stem of the prosthesis Interpreted by: Rei Nelson MD Preliminary Report By: Rei Nelson MD Electronically signed By Rei Nelson MD Dictated Date: 05/02/2025 3:35:36 PM Prelim Date: 05/02/2025 3:37:06 PM Sign Date: 05/02/2025 3:37:06 PM Ordering Provider: [facility]06-02-2025 Note* Exam Date Time Procedure Performing Provider Status 05/02/25 11:28 AM XR Shoulder Minimum 2 Views Right REI NELSON MD; Auth (Verified) [id number] ORIGINAL EXAMINATION: 4 XRAY VIEWS OF THE RIGHT SHOULDER05/02/2025 11:29 am COMPARISON: 08/14/2020 HISTORY: ORDERING SYSTEM PROVIDED HISTORY: Reason for Exam: Arm pain, greater than 5 weeks from Prolia evaluate bone health, assure no fracture FINDINGS: Reverse right shoulder arthroplasty noted. Cortical irregularity seen in the proximal humeral shaft, around the humeral stem of the prosthesis. Mild acromioclavicular joint arthrosis identified. Visualized right ribs are intact. Visualized right lung is clear. IMPRESSION: Right shoulder arthroplasty. There is a suspected periprosthetic fracture around the humeral stem of the prosthesis Interpreted by: Rei Nelson MD Preliminary Report By: Rei Nelson MD Electronically signed By Rei Nelson MD Dictated Date: 05/02/2025 3:37:10 PM Prelim Date: 05/02/2025 3:38:22 PM Sign Date: 05/02/2025 3:38:22 PM Ordering Provider: LUIS SHETTY [facility]04-24-2025 Nurse Progress note patient tolerated prolia injection without signs or symptoms of a reaction Digitally Signed by Veronica Sherwood RN on 03/24/2025 01:27 PM [facility]10-23-2024 Nurse Progress note patient tolerated prolia injection without signs or symptoms of a reaction Digitally Signed by Veronica Sherwood RN on 09/22/2024 01:45 PM [facility]08-21-2024 NoteHNO ID: [id number] Author: HIREN STARKS AUD Service: ? Author Type: Bull Gang Supervisor Type: Progress Notes Filed: 07/21/2024 13:11 Note Text: Rosie Vee 83 year old here today for a routine 1 month follow up. She believes from her research, that she has auditory processing difficulties therefore speech will be difficult in background noise. The patient reports the settings from her previous visit were better than the most recent changes. TESTING: Audiometric testing was completed on 06/11/24 HEARING AID: The hearing aids were inspected and found to be clean. Listening and functional checks were good. The aids were programmed to restore settings from 06/11/24. The patient states the volume is comfortable. PLAN/RECOMMENDATIONS: 1. Monitor hearing aid function and communication ability. 2. Return to the office in 6 months for hearing aid follow up or as needed. Hiren Starks [facility]08-21-2024 History of Present illness Narrative* Hiren Starks AUD - 07/21/2024 12:47 PM EDT Rosie Vee 83 year old here today for a routine 1 month follow up. She believes from her research, that she has auditory processing difficulties therefore speech will be difficult in backgroundnoise. The patient reports the settings from her previous visit were better than the most recent changes. TESTING: Audiometric testing was completed on 06/11/24 HEARING AID: The hearing aids were inspected and found to be clean. Listening and functional checkswere good. The aids were programmed to restore settings from 06/11/24. The patient states the volume is comfortable. PLAN/RECOMMENDATIONS: 1. Monitor hearing aid function and communication ability. 2. Return to the office in 6 months for hearing aid follow up or as needed. AQUILES Gonzales [facility] Discharge instructions Patient Education 07/13/2024 15:06:34 Bronchitis, Antibiotic Treatment (Adult) Bronchitis, Antibiotic Treatment (Adult) Bronchitis is an infection of the air passages (bronchial tubes) in your lungs. It often occurs when you have a cold. This illness is contagious during the first few days and is spread through the air by coughing and sneezing, or by direct contact (touching the sick person and then touching your own eyes, nose, or mouth). Symptoms of bronchitis include cough with mucus (phlegm) and low-grade fever. Bronchitis usually lasts 7 to 14 days. Mild cases can be treated with simple home remedies. More severe infection is treated with an antibiotic. Home care Follow these guidelines when caring for yourself at home: If your symptoms are severe, rest at home for the first 2 to 3 days. When you go back to your usualactivities, don't let yourself get too tired. Don't smoke. Also stay away from secondhand smoke. You may use agxk-atp-icjvsqa medicines to control fever or pain, unless another medicine was prescribed. If you have chronic liver or kidney disease or have ever had a stomach ulcer or gastrointestinal bleeding, talk with your healthcare provider before using these medicines. Also talk to your provider if you are taking medicine to prevent blood clots. Aspirin should never be given to anyone younger than 18 who is ill with a viral infection or fever. It may cause severe liver or brain damage. Your appetite may be low, so a light diet is fine. Stay well hydrated by drinking 6 to 8 glasses offluids per day. This includes water, soft drinks, sports drinks, juices, tea, or soup. Extra fluidswill help loosen mucus in your nose and lungs. Lynr-rfv-wfvcrkw cough, cold, and sore-throat medicines will not shorten the length of the illness,but they may be helpful to reduce your symptoms. Don't use decongestants if you have high blood pressure. Finish all antibiotic medicine. Do this even if you are feeling better after only a few days. Follow-up care Follow up with your healthcare provider, or as advised. If you had an X-ray or ECG (electrocardiogram), a specialist will review it. You will be told of any new test results that may affect your care. If you are age 65 or older, if you smoke, or if you have a chronic lung disease or condition that affects your immune system, ask your healthcare provider about getting a pneumococcal vaccine and a yearly flu shot (influenza vaccine). When to seek medical advice Call your healthcare provider right away if any of these occur: Fever of 100.4 F (38 C) or higher, or as directed by your healthcare provider Coughing up more sputum Weakness, drowsiness, headache, facial pain, ear pain, or a stiff neck Call 911 Call 911 if any of these occur. Coughing up blood Weakness, drowsiness, headache, or stiff neck that get worse Trouble breathing, wheezing, or pain with breathing [id number] [employer] [address] [place] [address]. All rights reserved. This information is not intended as a substitute for professional medical care. Always follow yourhealthcare professional's instructions. Follow Up Care 07/13/2024 13:30:43 With:LUIS SHETTY DO Address: [address] [place] [address] [phone] When:2-4 days [facility] 08-13-2024 Note Discharge Instructions Thank you for allowing [facility] to assist you with your healthcare needs. The following is importantdischarge information regarding your hospital visit. Diagnosis from Today's Visit Bronchitis What to Do Next Instructions from Your Care Team You were seen today for palpitations and shortness of breath. Your evaluation did not suggest any severe cardiac arrhythmia or OK. Your EKG did show PVCs, which was present on prior EKG done last year. Sometimes people can be symptomatic of PVCs if they are feeling overall. Recommend follow-up with cardiology for this. Your chest x-ray was slightly abnormal, did show some opacities that appear slightly nodular in nature, we will assume these are infectious entry treated for bronchitis with antibiotics. Follow-up with your primary care provider for resolution. If you have any concerns or worsening of symptoms please return for reevaluation. No qualifying data available. Post Acute Orders No qualifying data available. You Need to Schedule the Following Appointments Follow Up with LUIS SHETTY DO When:Within 2-4 days Where:0 [facility] [place] [address]- [phone] Allergies Vicodin azithromycin Constipation clindamycin penicillin Medications Please ask your primary doctor or pharmacist before taking any other medication not listed, including over the counter drugs, herbal medications, vitamins and or supplements as they may interact withyour home medications. What How Much When Why Instructions Last Dose New doxycycline (doxycycline hyclate 100 mg oral capsule) 1 cap by mouth Two (2) times a day Duration: 7 Days Printed Prescription Unchanged ascorbic acid (Vitamin C 1000 mg oral tablet) 1 tab(s) by mouth Once a day Unchanged cholecalciferol (Vitamin D (3) 45 units oral capsule) Once a day Unchanged cyanocobalamin (Vitamin B12 50 mcg oral tablet) 1 tab(s) by mouth Once a day Unchanged denosumab (Prolia 60 mg/ mL subcutaneous solution) 1 Milliliter Subcutaneous Every 6 months Osteoporosis Unchanged docusate (Dulcolax Stool Softener) by mouth Two (2) times a day Unchanged glucosamine (glucosamine 500 mg oral capsule) 1 cap by mouth Every day Unchanged herbal/ nutritional product (Probiotic) Unchanged levothyroxine (levothyroxine 50 mcg (0.05 mg) oral tablet) See instructions TAKE 1 TAB BY MOUTH EVERYDAY, EXCEPT 2 ON FRIDAY Unchanged multivitamin (Multivitamin) 1 tab(s) by mouth Every day Please take this list to your next doctor s visit. Bring all medications you take, including over the counter medications, herbals and other supplements with you to your doctor s visit. Patients and families are reminded to discard old lists and to update any records with all medication providers or retail pharmacies. Education Materials Bronchitis, Antibiotic Treatment (Adult) Bronchitis is an infection of the air passages (bronchial tubes) in your lungs. It often occurs when you have a cold. This illness is contagious during the first few days and is spread through the air by coughing and sneezing, or by direct contact (touching the sick person and then touching your own eyes, nose, or mouth). Symptoms of bronchitis include cough with mucus (phlegm) and low-grade fever. Bronchitis usually lasts 7 to 14 days. Mild cases can be treated with simple home remedies. More severe infection is treated with an antibiotic. Home care Follow these guidelines when caring for yourself at home: If your symptoms are severe, rest at home for the first 2 to 3 days. When you go back to your usualactivities, don't let yourself get too tired. Don't smoke. Also stay away from secondhand smoke. You may use ficu-whj-xeysooz medicines to control fever or pain, unless another medicine was prescribed. If you have chronic liver or kidney disease or have ever had a stomach ulcer or gastrointestinal bleeding, talk with your healthcare provider before using these medicines. Also talk to your provider if you are taking medicine to prevent blood clots. Aspirin should never be given to anyone younger than 18 who is ill with a viral infection or fever. It may cause severe liver or brain damage. Your appetite may be low, so a light diet is fine. Stay well hydrated by drinking 6 to 8 glasses offluids per day. This includes water, soft drinks, sports drinks, juices, tea, or soup. Extra fluidswill help loosen mucus in your nose and lungs. Leff-epx-kxejgue cough, cold, and sore-throat medicines will not shorten the length of the illness,but they may be helpful to reduce your symptoms. Don't use decongestants if you have high blood pressure. Finish all antibiotic medicine. Do this even if you are feeling better after only a few days. Follow-up care Follow up with your healthcare provider, or as advised. If you had an X-ray or ECG (electrocardiogram), a specialist will review it. You will be told of any new test results that may affect your care. If you are age 65 or older, if you smoke, or if you have a chronic lung disease or condition that affects your immune system, ask your healthcare provider about getting a pneumococcal vaccine and a yearly flu shot (influenza vaccine). When to seek medical advice Call your healthcare provider right away if any of these occur: Fever of 100.4 F (38 C) or higher, or as directed by your healthcare provider Coughing up more sputum Weakness, drowsiness, headache, facial pain, ear pain, or a stiff neck Call 911 Call 911 if any of these occur. Coughing up blood Weakness, drowsiness, headache, or stiff neck that get worse Trouble breathing, wheezing, or pain with breathing [id number] [employer]. [address] [place] [id number]. All rights reserved. This information is not intended as a substitute for professional medical care. Always follow yourhealthcare professional's instructions. Additional Information VACCINATE! IT SAVES LIVES! Members of the community who have not yet received the COVID-19 vaccine and would like to receive it can visit one of [facility] vaccine clinics. There are many vaccine clinic locations within the [facility]. For locations and available times, please visit www.gettheshot.coronavirus.[place].gov/. It is important to note that some COVID mobile vaccine clinics are held outdoors and may be canceled in rainy or stormy conditions. To learn more about pediatric vaccinations (ages 5-11), we invite you to visit the [facility] webpage. https://www.[email or web address]/pages/[email or web address]-Soako-Juupalfthak-Hqcykzxjpq-Wxfae-Qvw stions.htmlTo learn more about the COVID-19 vaccine, we invite you to visit the CDC website for a list of frequently asked questions. https://www.cdc.gov/coronavirus/2019-ncov/vaccines/faq.html [facility] Patient Portal Access Instructions: Stay connected with your healthcare team and access your personal medical information anytime with the [facility] [employer] [facility] Patient Portal. If you would like a full copy of your medical records please contact the [facility] Medical Records Department Friday through Friday between 8a.m. and 4:30p.m. Please follow the directions below to access the portal: 1.Access the email account you provided upon registration to the hospital.2.Look for an invitation email from [facility].3.Open the email and access the invitation link: Accept Invitation to [facility]4.Fill in the required juarez to create your account. Sign into www.[employer] with your username and password that you created in the above steps to stay up to date. You can then view a summary of results, a summary of your visits, and the ability to download your summaries to your computer or send the information securely to a physician. Remember that your healthcare information is confidential, so carefully consider who you will allow to register on the [facility] Patient Portal for access to your information. You can also access the [facility] Patient Portal on the [employer] gladys. Simply click on Health Records under [employer] and then click on the [employer] logo. HOW TO SAFELY DISPOSE OF PRESCRIPTION MEDICATIONS Please use one of the following methods to safely dispose of your unused medications. 1.Use a drug disposal kit: the drug disposal pouch allows you to safely discard your old and unuseddrugs. Ask your nurse to give you one when you are discharged.2.Visit a local take-back location: Many local pharmacies and police departments have programs that collect old and unwanted prescriptiondrugs. Call your local pharmacy or go to http://Pawzii/0M1Zx5c to find one close to you.3.Make use of household items: Use cat litter or old coffee grounds to dispose medications if other options arenot available. Mix your drugs with these household products, seal them in an airtight container andthrow it into the garbage. Call [facility]: [phone] to be sure your drugs can be disposed of in this way. Some medicines may require a different approach.4.Never flush your medications down the toilet. IF YOU HAVE BEEN PRESCRIBED AN OPIOIDS FOR PAIN If you have been prescribed an opioid (such as hydrocodone, oxycodone or morphine), it is critical to understand the possible side effects and risks of opioid pain medications. Even when taken as directed, opioids can have several side effects including: Tolerance, meaning you might need to take more of a medication for the same pain relief. Nausea, vomiting and/or constipation. Sleepiness, dizziness, dry mouth, confusion, depression or itching. Physical dependence, meaning you have withdrawal symptoms when a medication is stopped ? this can develop within a few days. KNOW YOUR RESPONSIBILITIES It is important to know exactly how much and how often to take the opioid pain medications you are prescribed. Never take opioids in higher amounts or more often than prescribed. Do not combine opioids with alcohol or other drugs that cause drowsiness, such as benzodiazepines, also known as benzos,including diazepam and alprazolam, muscle relaxants or sleep aids. Never sell or share prescriptionopioids. This is illegal. Store opioids in a secure place and out of reach of others (including children, family, friends and visitors). The last page(s) of this document has been signed and retained as a CHART COPY Signatures Patient Education Materials Bronchitis, Antibiotic Treatment (Adult) Medication Leaflets My discharge plan and instructions have been reviewed and explained to me and I,ROSIE VEE I understand my current condition and have read and understand these discharge instructions. I have received a written copy of the plan/instructions. If I have questions, I am aware that I should contactmy doctor. Patient/Procurement Internship Signature: Date/Time: Relationship to Patient: Witness Name/Signature: Date/Time: [facility]08-13-2024 Note ORIGINAL EXAMINATION: ONE XRAY VIEW OF THE CHEST 07/13/2024 2:17 pm COMPARISON: 11/09/2023 HISTORY: ORDERING SYSTEM PROVIDED HISTORY: Reason for Exam: chest pain IMPRESSION: Partially visualized reverse right shoulder arthroplasty. Multifocal degenerative changes of the osseous structures. Lung hyperinflation. Cardiomediastinal silhouette is within normal limits. Peribronchial thickening may be related to bronchitis versus edema. Patchy bibasilar opacities. Interstitial opacities in the right mid to lower lung zone have a slightly nodular appearance. Costophrenic angles are sharp. No pneumothorax. Biapical pleural thickening/scarring. Interpreted by: Ladan Zhang Preliminary Report By: Ladan Zhang Electronically signed By Ladan Zhang Dictated Date: 07/13/2024 2:19:26 PM Prelim Date: 07/13/2024 2:21:53 PM Sign Date: 07/13/2024 2:21:53 PM Ordering Provider: [facility]08-13-2024 Note Sinus tachycardia Paired ventricular premature complexes Aberrant conduction of SV complex(es) Inferior infarct, old Anterior infarct, old Electronic Signature: NEMESIO GUNTER MD 07/13/2024 13:55:21[facility] 07-25-2024 NoteHNO ID: [id number] Author: HIREN STARKS AUD Service: ? Author Type: Bull Gang Supervisor Type: Progress Notes Filed: 06/24/2024 10:20 Note Text: Rosie Vee 83 year old here today for a routine 2 week follow up. The patient reports not being in group situations during the past two weeks however has several meetings scheduled in the near future. She reports wearing the aids regularly and hasn't found a difference in her hearing ability when she removed the aids. PHYSICAL EXAM: Otoscopic inspection revealed non occluding cerumen bilaterally TESTING: Audiometric testing was completed on 06/11/24 HEARING AID: The hearing aids were inspected and found to be clean. Listening and functional checks were good. The aids were programmed to increase the gain for mid to high frequency inputs X3 bilaterally. We discussed strategies for background noise and music. PLAN/RECOMMENDATIONS: 1. Monitor hearing aid function and communication ability. 2. Return to the office in 1 months for hearing aid follow up or as needed. Hiren Starks, [facility]07-25-2024 History of Present illness Narrative* Hiren Starks AUD - 06/24/2024 9:55 AM EDT Rosie Vee 83 year old here today for a routine 2 week follow up. The patient reports not being in group situations during the past two weeks however has several meetings scheduled in the near future. She reports wearing the aids regularly and hasn't found a difference in her hearing ability when she removed the aids. PHYSICAL EXAM: Otoscopic inspection revealed non occluding cerumen bilaterally TESTING: Audiometric testing was completed on 06/11/24 HEARING AID: The hearing aids were inspected and found to be clean. Listening and functional checkswere good. The aids were programmed to increase the gain for mid to high frequency inputs X3 bilaterally. We discussed strategies for background noise and music. PLAN/RECOMMENDATIONS: 1. Monitor hearing aid function and communication ability. 2. Return to the office in 1 months for hearing aid follow up or as needed. AQUILES Gonzales [facility] NoteHNO ID: [id number] Author: HIREN STARKS AUD Service: ? Author Type: Bull Gang Supervisor Type: Progress Notes Filed: 06/11/2024 15:36 Note Text: Rosie Vee 83 year old here today for a hearing aid follow up. The patient reports being fit with aids approximately 2 years ago and the fit has never been right. Conversations in noise are unclear and she is unable to hear lyrics in music. 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 Speech understanding ability is excellent is the right ear and good in the left HEARING AID: The hearing aids were inspected and found to be functioning properly. The aids were programmed to increase the gain for moderate inputs bilaterally, and decrease MPO and loud imputs. We discussed aural rehabilitation and recommended she wear the aids daily for two weeks and return for follow up PLAN/RECOMMENDATIONS: 1. Monitor hearing aid function and communication ability. 2. Return to the office in 2 weeks for hearing aid follow up or as needed. [facility] History of Present illness Narrative* Hiren Starks AUD - 06/11/2024 2:48 PM EDT Rosie Vee 83 year old here today for a hearing aid follow up. The patient reports being fit with aids approximately 2 years ago and the fit has never been right. Conversations in noise are unclear and she is unable to hear lyrics in music. 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 Speech understanding ability is excellent is the right ear and good in the left HEARING AID: The hearing aids were inspected and found to be functioning properly. The aids were programmed to increase the gain for moderate inputs bilaterally, and decrease MPO andloud imputs. We discussed aural rehabilitation and recommended she wear the aids daily for two weeks and return for follow up PLAN/RECOMMENDATIONS: 1. Monitor hearing aid function and communication ability. 2. Return to the office in 2 weeks for hearing aid follow up or as needed. AQUILES Gonzales [facility] Telephone encounter Note * Telephone Encounter - Erin Mendoza - 04/02/2024 9:20 AM EDT Message released to patient as written. YES Patient's further questions if applicable: NA Were all questions from office addressed or relayed to the patient from encounter: Yes [id number] Miscellaneous Notes* Telephone Encounter - Erin Mendoza - 04/02/2024 9:20 AM EDT Message released to patient as written. YES Patient's further questions if applicable: NA Were all questions from office addressed or relayed to the patient from encounter: Yes * Telephone Encounter - Duke Vicente - 04/01/2024 9:48 AM EDT LVM for pt to call back. Office# provided. 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 I asked our audiologists and they [facility]. * Telephone Encounter - Salma Robin - 03/31/2024 2:04 PM EDT CAC please see message from provider below * Telephone Encounter - Joey De Jesus DO - 03/31/2024 9:59 AM EDT This is not an entity I have ever heard of or have any experience treating you can let the patient know or asked Dr. Zheng for Dr. Kowalski * Telephone Encounter - Duke Vicente - 03/30/2024 10:07 AM EDT Name of caller: Rosie Contact phone number: [phone] Relationship to Patient: patient Provider: new patient Practice: [facility] Chief Complaint/Reason for Call: Pt states she would like to know if any of the providers in the office are experienced with auditory neuropathy spectrum disorder. Pt states she is looking for a provider that has history dealing with this disorder specifically and can get a referral to be seen if the office can treat it. Please advise. Best time of day caller can be reached: any Patient advised that office/PCP has 24-48 business hours to return their call: No [facility] [id number] Telephone encounter Note* Telephone Encounter - Duke Vicente - 04/01/2024 9:48 AM EDT LVM for pt to call back. Office# provided. 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 I asked our audiologists and they recommend going to or [facility]. [id number] Miscellaneous Notes* Telephone Encounter - Duke Vicente - 04/01/2024 9:48 AM EDT LVM for pt to call back. Office# provided. 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 I asked our audiologists and they recommend going to or [facility]. * Telephone Encounter - Salma Robin - 03/31/2024 2:04 PM EDT CAC please see message from provider below * Telephone Encounter - Joey De Jesus DO - 03/31/2024 9:59 AM EDT This is not an entity I have ever heard of or have any experience treating you can let the patient know or asked Dr. Zheng for Dr. Kowalski * Telephone Encounter - Duke Vicente - 03/30/2024 10:07 AM EDT Name of caller: Rosie Contact phone number: [phone] Relationship to Patient: patient Provider: new patient Practice: [facility] Chief Complaint/Reason for Call: Pt states she would like to know if any of the providers in the office are experienced with auditory neuropathy spectrum disorder. Pt states she is looking for a provider that has history dealing with this disorder specifically and can get a referral to be seen if the office can treat it. Please advise. Best time of day caller can be reached: any Patient advised that office/PCP has 24-48 business hours to return their call: No documented in this encounterSKettering Health [id number] Telephone encounter Note* Telephone Encounter - Salma Robin - 03/31/2024 2:04 PM EDT CAC please see message from provider below [id number] Telephone encounter Note* Telephone Encounter - Joey De Jesus DO - 03/31/2024 9:59 AM EDT This is not an entity I have ever heard of or have any experience treating you can let the patient know or asked Dr. Zheng for Dr. Kowalski T [facility] Work Phone: [phone] 262-505404-30-2024 Telephone encounter Note* Telephone Encounter - Duke Vicente - 03/30/2024 10:07 AM EDT Name of caller: Rosie Contact phone number: [phone] Relationship to Patient: patient Provider: new patient Practice: [facility] Chief Complaint/Reason for Call: Pt states she would like to know if any of the providers in the office are experienced with auditory neuropathy spectrum disorder. Pt states she is looking for a provider that has history dealing with this disorder specifically and can get a referral to be seen if the office can treat it. Please advise. Best time of day caller can be reached: any Patient advised that office/PCP has 24-48 business hours to return their call: No [facility] [id number] Hospital Discharge instructions Patient Education 11/09/2023 21:16:37 Chest Wall Pain, Costochondritis Chest Wall Pain: Costochondritis The chest pain that you have had today is caused by costochondritis. This condition is caused by aninflammation of the cartilage joining your ribs to your breastbone. It is not caused by heart or lung problems. Your healthcare team has made sure that the chest pain you feel is not from a life threatening cause of chest pain such as heart attack, collapsed lung, blood clot in the lung, tear in the aorta, or esophageal rupture. The inflammation may have been brought on by a blow to the chest, lifting heavy objects, intense exercise, or an illness that made you cough and sneeze a lot. It often occurs during times of emotional stress. It can be painful, but it is not dangerous. It usually goesaway in 1 to 2 weeks. But it may happen again. Rarely, a more serious condition may cause symptoms similar to costochondritis. That s why it s important to watch for the warning signs listed below. Home care Follow these guidelines when caring for yourself at home: If you feel that emotional stress is a cause of your condition, try to figure out the sources of that stress. It may not be obvious. Learn ways to deal with the stress in your life. This can include regular exercise, muscle relaxation, meditation, or simply taking time out for yourself. You may use acetaminophen, ibuprofen, or naproxen to control pain, unless another pain medicine wasprescribed. If you have liver or kidney disease or ever had a stomach ulcer, talk with your healthcare provider before using these medicines. You can also help ease pain by using a hot, wet compress or heating pad. Use this with or without amedicated skin cream that helps relieves pain. Do stretching exercise as advised by your provider. Take any prescribed medicines as directed. Follow-up care Follow up with your healthcare provider, or as advised, if you do not start to get better in the next 2 days. When to seek medical advice Call your healthcare provider right away if any of these occur: A change in the type of pain. Call if it feels different, becomes more serious, lasts longer, or spreads into your shoulder, arm, neck, jaw, or back. Shortness of breath or pain gets worse when you breathe Weakness, dizziness, or fainting Cough with dark-colored sputum (phlegm) or blood Abdominal pain Dark red or black stools Fever of 100.4 F (38 C) or higher, or as directed by your healthcare provider [id number] [employer]. [address] [place] [address]. All rights reserved. This information is not intended as a substitute for professional medical care. Always follow yourmadison healthcare professional's instructions. Follow Up Care 11/09/2023 17:21:26 With:LUIS SHETTY DO Address: [address] [place] [phone]- [phone] When:2-4 days With:LUIS SHETTY DO Address: [address] [place] [phone]- [phone] When:2-4 days [facility] Liliana 12-10-2023 Note Discharge Instructions Thank you for allowing [facility] to assist you with your healthcare needs. The following is importantdischarge information regarding your hospital visit. Diagnosis from Today's Visit Back pain Headache Nausea What to Do Next Instructions from Your Care Team No qualifying data available. Post Acute Orders No qualifying data available. You Need to Schedule the Following Appointments Follow Up with LUIS SHETTY DO When Within 2-4 days Where: [address] [place] [address]- [phone] Follow Up with LUIS SHETTY DO When Within 2-4 days Where: [address] [place] [address]- [phone] Allergies Vicodin azithromycin (Constipation) clindamycin penicillin Medications Please ask your primary doctor or pharmacist before taking any other medication not listed, including over the counter drugs, herbal medications, vitamins and or supplements as they may interact withyour home medications. What How Much When Why Instructions Last Dose Unchanged ascorbic acid (Vitamin C 1000 mg oral tablet) 1 tab(s) by mouth Once a day Unchanged cholecalciferol (Vitamin D (3) 45 units oral capsule) Once a day Unchanged clobetasol topical (clobetasol 0.05% topical shampoo) 1 application Topical Once a day Seborrheic dermatitis of scalp Unchanged cyanocobalamin (Vitamin B12 50 mcg oral tablet) 1 tab(s) by mouth Once a day Unchanged denosumab (Prolia 60 mg/ mL subcutaneous solution) 1 Milliliter Subcutaneous Every 6 months Osteoporosis Unchanged docusate (Dulcolax Stool Softener) by mouth Two (2) times a day Unchanged glucosamine (glucosamine 500 mg oral capsule) 1 cap by mouth Every day Unchanged herbal/ nutritional product (Probiotic) Unchanged levothyroxine (levothyroxine 50 mcg (0.05 mg) oral tablet) See instructions TAKE 1 TAB BY MOUTH EVERYDAY, EXCEPT 2 ON FRIDAY Unchanged magnesium oxide (Magnesium 250 mg tablet) 1 tab(s) by mouth Once a day Unchanged multivitamin (Multivitamin) 1 tab(s) by mouth Every day Unchanged traZODone (traZODone 50 mg oral tablet) 1 tab(s) by mouth Daily at bedtime Sleep difficulties Please take this list to your next doctor s visit. Bring all medications you take, including over the counter medications, herbals and other supplements with you to your doctor s visit. Patients and families are reminded to discard old lists and to update any records with all medication providers or retail pharmacies. Education Materials Chest Wall Pain: Costochondritis The chest pain that you have had today is caused by costochondritis. This condition is caused by aninflammation of the cartilage joining your ribs to your breastbone. It is not caused by heart or lung problems. Your healthcare team has made sure that the chest pain you feel is not from a life threatening cause of chest pain such as heart attack, collapsed lung, blood clot in the lung, tear in the aorta, or esophageal rupture. The inflammation may have been brought on by a blow to the chest, lifting heavy objects, intense exercise, or an illness that made you cough and sneeze a lot. It often occurs during times of emotional stress. It can be painful, but it is not dangerous. It usually goesaway in 1 to 2 weeks. But it may happen again. Rarely, a more serious condition may cause symptoms similar to costochondritis. That s why it s important to watch for the warning signs listed below. Home care Follow these guidelines when caring for yourself at home: If you feel that emotional stress is a cause of your condition, try to figure out the sources of that stress. It may not be obvious. Learn ways to deal with the stress in your life. This can include regular exercise, muscle relaxation, meditation, or simply taking time out for yourself. You may use acetaminophen, ibuprofen, or naproxen to control pain, unless another pain medicine wasprescribed. If you have liver or kidney disease or ever had a stomach ulcer, talk with your healthcare provider before using these medicines. You can also help ease pain by using a hot, wet compress or heating pad. Use this with or without amedicated skin cream that helps relieves pain. Do stretching exercise as advised by your provider. Take any prescribed medicines as directed. Follow-up care Follow up with your healthcare provider, or as advised, if you do not start to get better in the next 2 days. When to seek medical advice Call your healthcare provider right away if any of these occur: A change in the type of pain. Call if it feels different, becomes more serious, lasts longer, or spreads into your shoulder, arm, neck, jaw, or back. Shortness of breath or pain gets worse when you breathe Weakness, dizziness, or fainting Cough with dark-colored sputum (phlegm) or blood Abdominal pain Dark red or black stools Fever of 100.4 F (38 C) or higher, or as directed by your healthcare provider [phone] [employer]. [address] [place] [address]. All rights reserved. This information is not intended as a substitute for professional medical care. Always follow yourhealthcare professional's instructions. Additional Information VACCINATE! IT SAVES LIVES! Members of the community who have not yet received the COVID-19 vaccine and would like to receive it can visit one of [facility] vaccine clinics. There are many vaccine clinic locations within the [facility]. For locations and available times, please visit www.gettheshot.coronavirus.[place].gov/. It is important to note that some COVID mobile vaccine clinics are held outdoors and may be canceled in rainy or stormy conditions. To learn more about pediatric vaccinations (ages 5-11), we invite you to visit the [facility] webpage. https://www.[facility].org/pages/1522-Ihjxc-Avrtvmvzmod-Ulzwrwbjzw-Jrumt-Boz stions.htmlTo learn more about the COVID-19 vaccine, we invite you to visit the CDC website for a list of frequently asked questions. https://www.cdc.gov/coronavirus/2019-ncov/vaccines/faq.html [facility] Patient Portal Access Instructions: Stay connected with your healthcare team and access your personal medical information anytime with the [facility] Patient Portal. If you would like a full copy of your medical records please contact the [facility] Medical Records Department Friday through Friday between 8a.m. and 4:30p.m. Please follow the directions below to access the portal: 1.Access the email account you provided upon registration to the [facility].2.Look for an invitation email from [facility].3.Open the email and access the invitation link: Accept Invitation to [employer]4.Fill in the required juarez to create your account. Sign into www.[employer] with your username and password that you created in the above steps to stay up to date. You can then view a summary of results, a summary of your visits, and the ability to download your summaries to your computer or send the information securely to a physician. Remember that your healthcare information is confidential, so carefully consider who you will allow to register on the [facility] Patient Portal for access to your information. You can also access the [facility] Patient Portal on the [employer]. Simply click on Health Records under [employer] and then click on the [employer] logo. HOW TO SAFELY DISPOSE OF PRESCRIPTION MEDICATIONS Please use one of the following methods to safely dispose of your unused medications. 1.Use a drug disposal kit: the drug disposal pouch allows you to safely discard your old and unuseddrugs. Ask your nurse to give you one when you are discharged.2.Visit a local take-back location: Many local pharmacies and police departments have programs that collect old and unwanted prescriptiondrugs. Call your local pharmacy or go to http://[employer]/5E7Ro4l to find one close to you.3.Make use of household items: Use cat litter or old coffee grounds to dispose medications if other options arenot available. Mix your drugs with these household products, seal them in an airtight container andthrow it into the garbage. Call [facility]: [phone] to be sure your drugs can be disposed of in this way. Some medicines may require a different approach.4.Never flush your medications down the toilet. IF YOU HAVE BEEN PRESCRIBED AN OPIOIDS FOR PAIN If you have been prescribed an opioid (such as hydrocodone, oxycodone or morphine), it is critical to understand the possible side effects and risks of opioid pain medications. Even when taken as directed, opioids can have several side effects including: Tolerance, meaning you might need to take more of a medication for the same pain relief. Nausea, vomiting and/or constipation. Sleepiness, dizziness, dry mouth, confusion, depression or itching. Physical dependence, meaning you have withdrawal symptoms when a medication is stopped ? this can develop within a few days. KNOW YOUR RESPONSIBILITIES It is important to know exactly how much and how often to take the opioid pain medications you are prescribed. Never take opioids in higher amounts or more often than prescribed. Do not combine opioids with alcohol or other drugs that cause drowsiness, such as benzodiazepines, also known as benzos,including diazepam and alprazolam, muscle relaxants or sleep aids. Never sell or share prescriptionopioids. This is illegal. Store opioids in a secure place and out of reach of others (including children, family, friends and visitors). The last page(s) of this document has been signed and retained as a CHART COPY Signatures Patient Education Materials Chest Wall Pain, Costochondritis Medication Leaflets My discharge plan and instructions have been reviewed and explained to me and I,ROSIE VEE I understand my current condition and have read and understand these discharge instructions. I have received a written copy of the plan/instructions. If I have questions, I am aware that I should contactmy doctor. Patient/Procurement Internship Signature: Date/Time: Relationship to Patient: Witness Name/Signature: Date/Time: [facility]12-10-2023 Note ORIGINAL EXAMINATION: TWO XRAY VIEWS OF THE CHEST 11/09/2023 7:54 pm COMPARISON: None. HISTORY: ORDERING SYSTEM PROVIDED HISTORY: Reason for Exam: Abdominal pain FINDINGS: Normal cardiomediastinal silhouette. Atherosclerotic aorta. No vascular congestion, focal consolidation, large pleural effusion, or visible pneumothorax. Biapical pleural scarring. Minimal linear airspace disease in left costophrenic angle favoring atelectasis or scarring. Degenerative changes of the spine and left shoulder. Right hemidiaphragm eventration. Right shoulder prosthesis. Right upper quadrant surgical clips. IMPRESSION: No acute radiographic abnormality. I have personally reviewed the images of this examination and agree with the resident's findings and interpretation. Interpreted by: Diandra Agrawal MD Preliminary Report By: Chato Laws Electronically signed By Diandra Agrawal MD Dictated Date: 11/09/2023 8:00:19 PM Prelim Date: 11/09/2023 8:02:13 PM Sign Date: 11/09/2023 8:17:05 PM Ordering Provider: [facility] NoteSinus tachycardia Ventricular premature complex Inferior infarct, old Anterior infarct, old Electronic Signature: MAYRA HENRY DO 11/09/2023 19:27:[address] [place] [address] Evaluation + Plan note No data available for this section [facility] Evaluation + Plan note Future Appointments Appointment Date:02/18/2023 11:00:00 AM Scheduled Provider:LUIS SHETTY DO Location:[facility] Appointment Type: OV [facility] Evaluation + Plan note Future Appointments Appointment Date:09/15/2023 12:30:00 PM Scheduled Provider:LUIS SHETTY DO Location:[facility] Appointment Type: OV [facility] Evaluation + Plan note Future Appointments Appointment Date:03/16/2024 11:30:00 AM Scheduled Provider:LUIS SHETTY DO Location:[facility] Appointment Type:PC OV Appointment Date:03/16/2024 02:30:00 PM Scheduled Provider:LUIS SHETTY DO Location:[facility] Appointment Type: OV [facility] Evaluation + Plan note Future Appointments Appointment Date:03/16/2024 02:30:00 PM Scheduled Provider:LUIS SHETTY DO Location:[facility] Appointment Type:PC OV Appointment Date:03/29/2024 02:00:00 PM Scheduled Provider:LUIS SHETTY DO Location:[facility] Appointment Type: OV Future Scheduled Tests Laboratory* Thyroid Stimulating Hormone 03/10/24 * Free T4 03/10/24 * Complete Blood Count 03/10/24 * Lipid Profile 03/10/24 * Vitamin D Level 03/10/24 * Complete Metabolic Panel 03/10/24 [facility] Evaluation + Plan note Future Appointments Appointment Date:06/28/2024 10:30:00 AM Scheduled Provider:LUIS SHETTY DO Location:[facility] Appointment Type:[facility] Evaluation + Plan note Future Appointments Appointment Date:09/13/2024 02:15:00 PM Scheduled Provider: Location:[facility] Appointment Type:PC Nurse Injection Appointment Date:09/27/2024 01:30:00 PM Scheduled Provider:LUIS SHETTY DO Location:[facility] Appointment Type:PC OV Future Scheduled Tests Laboratory* TSH with Reflex to FT4 06/28/25 * Basic Metabolic Panel 06/28/24 * Phosphorus Level 06/28/24 * Vitamin B12 Level 06/28/25 * A1C Hemoglobin 06/28/25 [facility] Evaluation + Plan note Future Appointments Appointment Date:09/27/2024 01:30:00 PM Scheduled Provider:LUIS SHETTY DO Location:[facility] Appointment Type:[facility] Evaluation + Plan note Future Appointments Appointment Date:06/24/2025 10:00:00 AM Scheduled Provider:LUIS SHETTY DO Location:[facility] Appointment Type: OV Future Scheduled Tests Laboratory* TSH with Reflex to FT4 01/25/25 * A1C Hemoglobin 01/25/25 * Complete Blood Count 01/25/25 * Lipid Profile 01/25/25 * Vitamin D Level 01/25/25 * Complete Metabolic Panel 01/25/25 [facility] Evaluation + Plan note Future Appointments Appointment Date:06/24/2025 10:00:00 AM Scheduled Provider:LUIS SHETTY DO Location:[facility] Appointment Type:[facility] Evaluation note* Diagnosis Sensorineural hearing loss (SNHL) of both ears- [facility] Sensorineural hearing loss (SNHL) of both ears- Primary documented in this encounter [facility] Discharge instructions No data available for this section [facility] Progress note No data available for this section [facility] Summary Purpose Family History No Family History Records Found Advance Directives No Advanced Directives Records FoundNo Advanced Directives Records FoundNo Advanced Directives Records FoundNo Advanced Directives Records FoundNo Advanced Directives Records Found Reason for Referral Specialty Diagnoses / Procedures Referred By Contac t Referred To Contact Procedures HEARING TEST/AUDIOGRAM COMPRE AUDIOMETRY THRESHOLD EVAL Hiren Tirado, AUD [address] [place] [address] [facility] [address] [place] [address] Referral ID Status Reason Start Date Expiration Date Visits Requested Visits Authorized [id number] New Request Auto-Generat ed Referral 06/11/2024 06/12/2025 1 1 Additional Source Comments Care Team (unrecognized sect ion and content) Care Team Personnel Name: LUIS SHETTY DO Position: P4 Physician - Primary Care Member Role: Primary Care Physician Address: Address: [address] [place] [phone] [place] [address] Care Team Related Persons Name: JULITO BALTAZAR Patient Care team informatio n (unrecognized section and content) Banana Loader Relationship Specialty Start Date End Date Luis Shetty DO [address] [place] [address] PCP - General Family Medicine 06/11/24 Banana Loader Relationship Specialty Start Date End Date Luis Shetty DO [address] [place] [address] PCP - General Family Medicine 06/11/24 Reason for Visit (unrecogniz ed section and content) Reason Onset Date Comments Advice Only 03/30/2024 Reason Comments Hearing Loss Reason Comments Follow Up INFORMATION SOURCE (unrecogn ized section and content) DATE CREATED AUTHOR 04/03/2024 [facility] DATE CREATED AUTHOR AUTHOR'S ORGANIZ ATION 07/18/2024 [facility] ([place]) DATE CREATED AUTHOR AUTHOR'S ORGANIZ ATION 07/23/2024 [facility] DATE CREATED AUTHOR AUTHOR'S ORGANIZ ATION 03/06/[address] [facility] tals Ambulatory DATE CREATED AUTHOR AUTHOR'S ORGANIZ ATION 05/26/2025 [facility] Source Comments (unrecognize d section and content) In the event this informatio n is protected by the Federal Confidentiality of Alcohol and Drug Abuse Patient Records regulations: The Federal rules restrict any use of the information to criminally investigate or prosecute any alcohol or drug abuse patient.[facility] the event this information is protected by the Federal Confidentiality of Alcohol and Drug Abuse Patient Records regulations: The Federal rules restrict any use of the information to criminally investigate or prosecute any alcohol or drug abuse patient.[facility] HospitalIn the event this information is protected by the Federal Confidentiality of Alcohol and Drug Abuse Patient Records regulations: The Federal rules restrict any use of the information to criminally investigate or prosecute any alcohol or drug abuse patient.[facility] FOR RECORDS PERTAINING TO PATIENTS WHO ARE OR HAVE BEEN ENROLLED IN A CHEMICAL DEPENDENCY/SUBSTANCEABUSE PROGRAM, SOME INFORMATION MAY BE OMITTED. This clinical summary was aggregated from multiple sources. Caution should be exercised in using it in the provision of clinical care. This summary normalizes information from multiple sources, and as a consequence, information in this document may materially change the coding, format and clinical context of patient data. In addition, data may be omitted in some cases. CLINICAL DECISIONS SHOULD BE BASED ON THE PRIMARY CLINICAL RECORDS. [facility] [employer]. provides no warranty or guarantee of the accuracy or completeness of information in this document.
== END | disposition home or self-care (01) ==
PROVIDERS: PCP Family Medicine; Referring Provider Anesthesiology Pain Medicine; Visit Provider Anesthesiology Pain Medicine
DX: M54.12 Radiculopathy, cervical region (principal)
CPT/HCPCS: 72040